=== PATIENT | female | born 1950 | race Caucasian/White ===

== ENCOUNTER 2020-06-06 17:26 | Emergency (ER) | payer MEDICARE, MEDICAID, SELFPAY ==
[2020-06-06] VITALS (7 sets, daily range): BP systolic 100–159; BP diastolic 49–72; PULSE 74–82; RESP 12–98; TEMP 36.4–36.9; O2SAT 95–100
--- NOTE | ~2020-06-06 | XR_ITS ---
XR shoulder LT min 2V DATE: 06/06/2020 19:28 INDICATION: Fall. Anterior shoulder pain. TECHNIQUE: 5 views COMPARISON: None FINDINGS: There is prominent diffuse osteopenia. There is osteoarthritis at the left glenohumeral joint and degenerative change at the left acromiocla vicular joint. No fracture, dislocation, periosteal reaction or bone destruction is detected. IMPRESSION: Diffuse osteopenia Degenerative changes No fracture or dislocation is detected Reviewed, dictated and finalized at location A.
--- NOTE | ~2020-06-06 | CT_ITS ---
EXAMINATION: CT brain wo con DATE: 06/06/2020 19:08 INDICATION: Fall. Head injury. Left supraorbital laceration. TECHNIQUE: Computed tomography (CT) of the head was performed without intravenous contrast. The mA wa s adjusted according to patient size. Iterative reconstruction technique was employed. Exam dose: 68 1.00 mGy-cm total exam DLP. COMPARISON: 03/28/2019 CT brain FINDINGS: There is a prominent area of encephalomalacia of the right temporal and parietal areas with calcification consistent with old infarct, within the right middle cerebral artery territory, stable since 01/27/2020. There is associated compensatory dilatation of the right lateral ventricle. Bilateral carotid siphon internal carotid artery calcifications and left vertebral artery calcificati on. There is nonspecific diminished attenuation of the cerebral white matter, likely due to chronic small vessel ischemic changes. No intracranial mass lesion or hemorrhage or recent cerebrovascular accident is evident. No midline s hift or mass effect effect. No subdural or epidural hematoma. No fracture or bone destruction of the cranial vault. The paranasal sinuses and mastoid air cells are well aerated. Left frontal sinus is not developed. Left periorbital and extracranial left frontal soft tissue hematoma. No coup or contrecoup intracrani al injury is identified. No fracture or bone destruction of the cranial vault. IMPRESSION: Left periorbital hematoma and left frontal cephalohematoma; no skull fracture or acute i ntracranial finding Chronic right middle cerebral artery territory cerebrovascular infarct Reviewed, dictated and finalized at [facility]. Reviewed, dictated and finalized at location A. IMPRESSION: Left periorbital hematoma and left frontal cephalohematoma; no sku ll fracture or acute intracranial finding Chronic right middle cerebral artery territory cerebrovascular infarct
--- NOTE | ~2020-06-06 | CT_ITS ---
EXAMINATION: CT facial & cervical spine wo DATE: 06/06/2020 19:08 INDICATION: Fall. Head injury. Left supraorbital laceration. TECHNIQUE: Computed tomography (CT) of the facial bones and maxillofacial region was performed withou t intravenous contrast. Automated exposure control and iterative reconstruction technique were employ ed. Exam dose: 494.96 mGy-cm total exam DLP. COMPARISON: 06/06/2020 CT brain FINDINGS: There is left frontal cephalohematoma and left periorbital soft tissue swelling. No skull fracture is identified. The frontozygomatic sutures, orbital rims and woodson, zygomatic arche s, nasal bones and maxillary sinus woodson are intact. The paranasal sinuses are patent and well aerate d without soft tissue thickening or blood. There is no subcutaneous emphysema identified. No mandibular fracture or temporomandibular joint dislocation. IMPRESSION: Left frontal cephalohematoma and left periorbital soft tissue swelling; no skull or faci al fracture is identified Reviewed, dictated and finalized at [facility]. Reviewed, dictated and finalized at location A. IMPRESSION: Left frontal cephalohematoma and left periorbital soft tissue swel ling; no skull or facial fracture is identified
--- NOTE | 2020-06-06 18:27 | ED.FALL ---
HPI - Fall General Chief Complaint: Fall Stated Complaint: FALL/ L EYE PAIN-LACERATION Time Seen by Provider: 06/06/20 17:54 Source: patient Mode of arrival: EMS Limitations: physical limitation History of Present Illness HPI Narrative: Patient is a 70-year-old female who presents by EMS. Per patient she was attempting to use restroom at correction and fell hitting her on an shoulder on concrete. Patient has a history of CVA and left-sided weakness. Patient complaining of left shoulder pain and left eye pain. Patient has been managing ecchymosis to left orbital area, approximately 1 cm laceration at eyebrow, bleeding controlled. She denies LOC, she denies all other complaints. Related Data Home Medications Medication Instructions Recorded Confirmed Breo Ellipta 1 inh INHALATION DAILY 03/03/19 03/03/19 Myrbetriq 50 mg PO DAILY 03/03/19 03/03/19 acetaminophen 500 mg PO QID PRN 03/03/19 03/03/19 albuterol sulfate [ProAir HFA] 2 puff INHALATION Q4H PRN 03/03/19 03/03/19 alprazolam 1 mg PO Q8H 03/03/19 03/03/19 atorvastatin 40 mg PO DAILY 03/03/19 03/03/19 bupropion HCl [Wellbutrin XL] 300 mg PO QAM 03/03/19 03/03/19 buspirone 15 mg PO Q8H 03/03/19 03/03/19 calcium carbonate [Tums] 200 mg PO QID PRN 03/03/19 03/03/19 docusate sodium 100 mg PO DAILY 03/03/19 03/03/19 duloxetine [Cymbalta] 60 mg PO BID 03/03/19 03/03/19 ferrous sulfate 325 mg PO DAILY 03/03/19 03/03/19 gabapentin 400 mg PO TID 03/03/19 03/03/19 guaifenesin [Mucinex] 600 mg PO BID 03/03/19 03/03/19 hydrocodone-acetaminophen [[place]] 1 tablet PO Q6H 03/03/19 03/03/19 ipratropium-albuterol 3 ml INHALATION Q8H 03/03/19 03/03/19 levetiracetam 750 mg PO BID 03/03/19 03/03/19 lisinopril 5 mg PO DAILY 03/03/19 03/03/19 melatonin 1 mg PO HS 03/03/19 03/03/19 melatonin 5 mg PO HS 03/03/19 03/03/19 nicotine (polacrilex) 2 mg BUCCAL Q1-2H PRN 03/03/19 03/03/19 nicotine [Nicoderm CQ] 1 patch TRANSDERMAL DAILY 03/03/19 03/03/19 omeprazole 40 mg PO DAILY 03/03/19 03/03/19 prednisone 10 mg PO DAILY 03/03/19 03/03/19 Allergies Allergy/AdvReac Type Severity Reaction Status Date / Time Sulfa (Sulfonamide Allergy Unknown Unknown Verified 06/06/20 17:36 Antibiotics) Review of Systems Review of Systems: Narrative: CONSTITUTIONAL: Denies fever, chills, or sweats. EYES: Reports pain and tenderness to the left orbital area and laceration ENT: Denies rhinorrhea, congestion, sore throat, or otalgia. CARDIOVASCULAR: Denies chest pain, palpitations, or edema. RESPIRATORY: Denies cough or dyspnea. GASTROINTESTINAL: Denies abdominal pain, nausea, vomiting, or diarrhea. GENITOURINARY: Denies dysuria or hematuria. SKIN: Denies rash or itching. MUSCULOSKELETAL: Left shoulder pain NEUROLOGIC: Denies headache, numbness, dizziness, or weakness. PSYCHIATRIC: Denies anxiety or depression. 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
--- NOTE | 2020-06-06 19:20 | PC.NURSE ---
Pt remains in radiology.
--- NOTE | 2020-06-06 19:29 | PC.NURSE ---
Pt returned from radiology.
[2020-06-06] MEDS: LIDOCAINE HCL 1% LOCAL INJ 20 ML VIAL (19:40)
--- NOTE | 2020-06-06 19:46 | PC.NURSE ---
DIGITAL PHOTOGRAPHER at bedside for laceration repair. Wound irrigation performed by DIGITAL PHOTOGRAPHER. Pt resting on cart in its lowest position. IV tylenol complete. Pt continues to complain of pain to left side of face, left shoulder and left wrist. Current pain rated 8/10 at this time; DIGITAL PHOTOGRAPHER notified with no new orders given at this time. Pt noted with 1cm laceration above left eyebrow that is not actively bleeding. Swelling and discoloration noted to left eye. Left shoulder and left wrist do not have obvious deformities noted. C-collar removed per DIGITAL PHOTOGRAPHER verbal order. Pt repositioned in bed for comfort. DIGITAL PHOTOGRAPHER remains at bedside and vitals are stable. Pt in no obvious distress. Call button and personal items within reach. Pt advised to press call button for assistance.
[2020-06-06] MEDS: HYDROcodone/acetaminophen (*CRX) 5-325 MG TABLET 1 TAB PO (20:27)
--- NOTE | 2020-06-06 21:10 | PC.NURSE ---
called tabitha to transfer patient to [facility]. ETA 0000
--- NOTE | 2020-06-06 21:49 | PC.NURSE ---
Pt on cart sleeping. Call button and personal items within reach. Vitals are stable and pt in no obvious distress.
--- NOTE | 2020-06-06 21:54 | PC.NURSE ---
EMS to arrive for pt at midnight. Pt aware and has no complaints or concerns voiced at this time.
--- NOTE | 2020-06-06 23:09 | PC.NURSE ---
Shaffer called and states will arrive for pt at 0000.
--- NOTE | 2020-06-07 01:06 | PC.NURSE ---
contacted [facility] to transfer patient home. eta [id number]
--- NOTE | 2020-06-07 01:07 | PC.NURSE ---
lu has arrived
[2020-06-07 01:11] VITALS: BP 107/64; PULSE 78; RESP 14; TEMP 37.1; O2SAT 100
--- NOTE | 2020-06-07 01:12 | PC.NURSE ---
EMS arrived to transport pt back to care home. Pt remains alert and oriented x4. Breathing noted to be even and unlabored and pt in no obvious distress.
--- NOTE | 2020-06-07 01:18 | ED.GENADULT ---
HPI - General Adult General Chief complaint: Fall Stated complaint: FALL/ L EYE PAIN-LACERATION Time Seen by Provider: 06/06/20 17:54 Source: patient Mode of arrival: EMS Limitations: physical limitation History of Present Illness HPI narrative: Patient repor Related Data Home Medications Medication Instructions Recorded Confirmed Breo Ellipta 1 inh INHALATION DAILY 03/03/19 03/03/19 Myrbetriq 50 mg PO DAILY 03/03/19 03/03/19 acetaminophen 500 mg PO QID PRN 03/03/19 03/03/19 albuterol sulfate [ProAir HFA] 2 puff INHALATION Q4H PRN 03/03/19 03/03/19 alprazolam 1 mg PO Q8H 03/03/19 03/03/19 atorvastatin 40 mg PO DAILY 03/03/19 03/03/19 bupropion HCl [Wellbutrin XL] 300 mg PO QAM 03/03/19 03/03/19 buspirone 15 mg PO Q8H 03/03/19 03/03/19 calcium carbonate [Tums] 200 mg PO QID PRN 03/03/19 03/03/19 docusate sodium 100 mg PO DAILY 03/03/19 03/03/19 duloxetine [Cymbalta] 60 mg PO BID 03/03/19 03/03/19 ferrous sulfate 325 mg PO DAILY 03/03/19 03/03/19 gabapentin 400 mg PO TID 03/03/19 03/03/19 guaifenesin [Mucinex] 600 mg PO BID 03/03/19 03/03/19 hydrocodone-acetaminophen [[place]] 1 tablet PO Q6H 03/03/19 03/03/19 ipratropium-albuterol 3 ml INHALATION Q8H 03/03/19 03/03/19 levetiracetam 750 mg PO BID 03/03/19 03/03/19 lisinopril 5 mg PO DAILY 03/03/19 03/03/19 melatonin 1 mg PO HS 03/03/19 03/03/19 melatonin 5 mg PO HS 03/03/19 03/03/19 nicotine (polacrilex) 2 mg BUCCAL Q1-2H PRN 03/03/19 03/03/19 nicotine [Nicoderm CQ] 1 patch TRANSDERMAL DAILY 03/03/19 03/03/19 omeprazole 40 mg PO DAILY 03/03/19 03/03/19 prednisone 10 mg PO DAILY 03/03/19 03/03/19 Allergies Allergy/AdvReac Type Severity Reaction Status Date / Time Sulfa (Sulfonamide Allergy Unknown Unknown Verified 06/06/20 17:36 Antibiotics) [facility] Past Medical History Medical History (Updated 06/06/20 @ 20:04 by NEEL Hermosillo) Abnormal posture Anemia Anxiety disorder due to known physiological condition Chronic pain Cognitive communication deficit COPD (chronic obstructive pulmonary disease) CVA (cerebral vascular accident) Dysarthria following cerebral infarction Essential (primary) hypertension GERD (gastroesophageal reflux disease) Hemiplegia and hemiparesis following cerebral infarction affecting left non-dominant side CVA 12/2016 Insomnia Major depressive disorder Multiple fractures of ribs Other abnormalities of gait and mobility Polyneuropathy Repeated falls Status post closed fracture of left femur s/p surgical repair Type 2 diabetes mellitus Surgical History Surgical History H/O colonoscopy H/O esophagogastroduodenoscopy History of partial hysterectomy History of tonsillectomy Family History Family History Father Diabetes mellitus PAD (peripheral artery disease) Hx of BKA Mother Cerebrovascular accident Sibling Diabetes mellitus Social History Social History Smoking packs per day: 1 Smoking cigarettes per day: 20.0 Years smoked: 50 Smoking pack-years: 50.00 Smoking status: Former smoker Tobacco type: cigarettes Alcohol intake: former Substance use: never Additional living arrangements comments: She lived in [place], [place] in the past, but now she is a resident at [facility] 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
[2020-06-07] MEDS: HYDROcodone/acetaminophen (*CRX) 5-325 MG TABLET 1 TAB PO (01:19)
[2020-06-07 02:12] VITALS: BP 107/64; PULSE 78; RESP 14; O2SAT 100
== END 2020-06-07 02:13 ==
PROVIDERS: Emergency Provider Nurse Practitioner
DX: S01.112A Laceration without foreign body of left eyelid and periocular area, initial encounter (principal); S05.12XA Contusion of eyeball and orbital tissues, left eye, initial encounter; I69.954 Hemiplegia and hemiparesis following unspecified cerebrovascular disease affecting left non-dominant side; I69.922 Dysarthria following unspecified cerebrovascular disease; J44.9 Chronic obstructive pulmonary disease, unspecified; I10 Essential (primary) hypertension; K21.9 Gastro-esophageal reflux disease without esophagitis; E11.42 Type 2 diabetes mellitus with diabetic polyneuropathy; F32.9 Major depressive disorder, single episode, unspecified; F41.9 Anxiety disorder, unspecified; R29.6 Repeated falls; Z86.2 Personal history of diseases of the blood and blood-forming organs and certain disorders involving the immune mechanism; Z87.891 Personal history of nicotine dependence; M85.812 Other specified disorders of bone density and structure, left shoulder; W18.11XA Fall from or off toilet without subsequent striking against object, initial encounter
CPT/HCPCS: 12011; 70450; 70486; 72125; 73030; 96365; 99284; A9270; J0131

== ENCOUNTER 2020-07-26 13:38 | Outpatient (CLI) | payer MEDICARE, MEDICAID, SELFPAY ==
--- NOTE | 2020-07-26 | ECHO_ITS ---
Patient Info Name: Constance Castro Age: 70 years : 1950 Gender: Female Ht: 62 in Wt: 128 lbs BSA: 1.60 m2 HR: 91 bpm BP: 121 / 74 mmHg Technical Quality: Poor Exam Date: 07/26/2020 2:15 PM Exam Location: [facility] Patient Status: Outpatient Admit Date: 07/26/2020 Staff Ordering Physician: Bettina Reyna NP Conveyor [employer]: ZAIDA OLMOS RDCS Attending Provider: Bettina Reyna NP Exam Type: CA echo doppler color flow Study Info Indications - CVA HYPOTENSION Complete two-dimentional, color flow and Doppler transthoracic echocardiogram is performed with agitated saline and with contrast to opacify the left ventricle and to improve the delineation of the left ventricle endocardial borders. Complete two-dimensional, color flow and Doppler transthoracic echocardiogram is performed. Reason for Poor Study: poor echocardiographic windows Summary 1. Complete two-dimensional, color flow and Doppler transthoracic echocardiogram is performed. 2. Technically suboptimal study due to poor sonographic images. 3. Left ventricular chamber dimension is normal. 4. Left ventricular systolic function is normal, estimated at 60-65%. 5. The left ventricular diastolic function is grade I diastolic dysfunction. 6. E/e' 7 is not elevated. Left Ventricle E/e' 7 is not elevated. Technically suboptimal study due to poor sonographic images. Left ventricular chamber dimension is normal. Left ventricular systolic function is normal, estimated at 60-65%. The left ventricular diastolic function is grade I diastolic dysfunction. Right Ventricle Right ventricular systolic function is normal with normal TAPSE 1.7 cm. Right ventricular chamber dimension is normal. Left Atria Left atrial chamber dimension is normal. Right Atria Right atrial chamber dimension is normal. Aortic Valve The aortic valve is trileaflet. There is no aortic valve stenosis. There is no aortic valve regurgitation. Pulmonic Valve There is no pulmonic regurgitation. Mitral Valve There is no mitral valve stenosis. There is no mitral valve regurgitation. Tricuspid Valve There is no tricuspid valve regurgitation. Pericardium/Pleural There is no pericardial effusion. Inferior Vena Cava Normal inferior vena cava with >50% collapse upon inspiration consistent with normal right atrial pressure, 5 mmHg. Aorta The aortic root size at the sinus of Valsalva is normal. Left Ventricular Outflow Tract Name Value Normal LVOT 2D LVOT Diameter 1.7 cm LVOT Doppler LVOT Peak Velocity 76 cm/s LVOT Peak Gradient 2 mmHg LVOT Mean Gradient 1 mmHg LVOT VTI 14 cm LVOT VTI/AV VTI Ratio 0.8 LVOT Stroke Volume 32 ml LVOT CO 2.8 l/min LVOT CI 1.7 l/min/m2 Pulmonic Valve Name Value Normal ---
== END 2020-07-26 13:39 | disposition home or self-care (01) ==
PROVIDERS: PCP Internal Medicine
DX: I95.9 Hypotension, unspecified (principal)
CPT/HCPCS: 93306

== ENCOUNTER 2020-09-17 12:14 | Emergency (ER) | payer MEDICARE, MEDICAID, SELFPAY ==
--- NOTE | ~2020-09-17 | CT_ITS ---
EXAMINATION: CT thoracic spine wo con DATE: 09/17/2020 13:02 INDICATION: Thoracic spine injury. TECHNIQUE: Computed tomography (CT) of the thoracic spine was performed without intravenous contrast. Automated exposure control and iterative reconstruction technique were employed. The dose-length pro duct was 1253.50 mGy-cm. COMPARISON: Chest CT 03/03/2019 FINDINGS: The lungs demonstrate mild atelectasis. There are gallstones in the gallbladder, which is n ormal in size. There is a 2.4 cm mass in left adrenal gland without change, likely an adenoma. The he art size is normal. There is a small pericardial effusion. There is kyphosis of thoracic spine. There is chronic anterior wedging of multiple vertebral bodies. There is mildly decreased disc height at m ultiple levels. There is multilevel mild facet joint osteoarthritis. There are bridging endplate oste ophytes at multiple levels in the spine, consistent with diffuse idiopathic skeletal hyperostosis (DI SH). There is mild neural foraminal stenosis at many levels bilaterally. No central canal stenosis. IMPRESSION: 1. No acute fracture. 2. Mild thoracic spondylosis. 3. DISH. 4. Small pericardial effusion. Reviewed, dictated and finalized at location A.
--- NOTE | ~2020-09-17 | CT_ITS ---
EXAMINATION: CT cervical spine wo con DATE: 09/17/2020 13:02 INDICATION: Neck injury. TECHNIQUE: Computed tomography (CT) of the cervical spine was performed without intravenous contrast. Automated exposure control and iterative reconstruction technique were employed. The dose-length pro duct was 472.81 mGy-cm. COMPARISON: CT cervical spine 06/06/2020 FINDINGS: There is 6 degrees dextrocurvature of cervical spine. Vertebral body heights are normal. A stable sclerotic lesion in T4 vertebral body is likely benign. There is mildly decreased disc height at C3-C4.. The following disc levels are specifically discussed: C2-C3: There is no uncovertebral joint osteoarthritis. There is moderate right and severe left facet joint osteoarthritis. There is no neural foraminal stenosis. There is no central canal stenosis. C3-C4: There is moderate bilateral uncovertebral joint osteoarthritis. There is severe bilateral face t joint osteoarthritis. There is mild bilateral neural foraminal stenosis. There is mild central brandon l stenosis. C4-C5: There is mild right uncovertebral joint osteoarthritis. There is severe bilateral facet joint osteoarthritis. There is mild bilateral neural foraminal stenosis. There is no central canal stenosis . C5-C6: There is moderate bilateral uncovertebral joint osteoarthritis. There is severe left facet mike nt osteoarthritis. There is mild left neural foraminal stenosis. There is mild central canal stenosis . C6-C7: There is no uncovertebral joint osteoarthritis. There is severe left facet joint osteoarthriti s. There is mild left neural foraminal stenosis. There is no central canal stenosis. C7-T1: There is no uncovertebral joint osteoarthritis. There is severe bilateral facet joint osteoart hritis. There is no neural foraminal stenosis. There is no central canal stenosis. IMPRESSION: 1. No fracture. 2. Moderate cervical spondylosis. Reviewed, dictated and finalized at location A.
--- NOTE | ~2020-09-17 | CT_ITS ---
EXAMINATION: CT brain wo con INDICATION: Head injury COMPARISON: 06/07/2019 TECHNIQUE: Standard unenhanced head CT. The dose-length product (DLP) was 605.33 mGy-cm. The mA was a djusted according to patient size. Iterative reconstruction technique was employed. FINDINGS: There is no acute intraparenchymal hemorrhage. No evidence of mass lesion. No evidence of a cute infarction. There is an old right middle cerebral artery distribution stroke. There is mild ex v acuo enlargement of the right lateral ventricle. There is mild periventricular and subcortical hypode nsity probably related to small vessel ischemic disease. There is mild prominence of the sulci and ve ntricles related to cerebral atrophy. Intracranial calcified cerebral atherosclerosis is noted. There are no extra-axial collections. There is no mass effect or midline shift. The orbits and soft tissue s are unremarkable. The visualized sinuses and mastoid air cells are well aerated. IMPRESSION: 1. Old right middle cerebral artery distribution stroke without acute intracranial abnormality. 2. Age related findings. Reviewed, dictated and finalized at location B. IMPRESSION: 1. Old right middle cerebral artery distribution stroke without acute intracran ial abnormality. 2. Age related findings.
--- NOTE | ~2020-09-17 | XR_ITS ---
EXAMINATION: XR chest 2V DATE: 09/17/2020 12:46 INDICATION: Chest pain and shortness of breath TECHNIQUE: AP and lateral views of the chest are obtained. COMPARISON: 03/03/2019 FINDINGS: There is mild subsegmental atelectasis of the lung bases. There is no pleural effusion or p neumothorax. The cardiomediastinal silhouette is normal. There is moderate thoracic spondylosis. IMPRESSION: 1. No acute cardiopulmonary abnormality. Reviewed, dictated and finalized at location B.
--- NOTE | 2020-09-17 12:14 | ECG_ITS ---
Measurements Intervals [place] Rate: 82 P: 58 NM: 169 QRS: 18 QRSD: 87 T: 74 QT: 377 QTc: 442 Interpretive Statements SINUS RHYTHM NONSPECIFIC T-WAVE ABNORMALITY- HIGH LATERAL LEADS BASELINE WANDER- I, II BORDERLINE ECG Electronically Signed On 09-17-2020 13:11:57 CDT by Yordan Arndt D.O.
[2020-09-17 12:15] VITALS: BP 150/79; PULSE 86; RESP 16; TEMP 36.7; O2SAT 100
[2020-09-17 13:35] LABS: Basophils Percent Auto 0.4 % (0.2-1.2); Eosinophils Absolute Auto 0.2 K/mm3 (0-0.3); Eosinophils Percent Auto 2.1 % (0-4.4); Hematocrit 39.5 % (37.0-47.0); Hemoglobin 12.1 g/dL (12.0-15.0); Immature Granulocyte Absolute 0.03 K/mm3 (0.00-0.031); Immature Granulocyte Percent A 0.3 % (0-0.5); Lymphocytes Absolute Auto 1.44 K/mm3 (0.9-3.2); Lymphocytes Percent Auto 15.1 % (18.3-44.2); Mean Corpuscular HGB Conc 30.6 g/dl (32-36); Mean Corpuscular Hemoglobin 30.9 pg (26-34); Mean Corpuscular Volume 100.8 fl (80-100); Mean Platelet Volume 9.3 fl (7.4-10.4); Monocytes Percent Auto 10.9 % (2.6-8.5); Neutrophils Absolute Auto 6.8 K/mm3 (1.3-6.7); Neutrophils Percent Auto 71.2 % (45.5-73.1); Platelet Count Result 253 k/mm3 (150-375); Red Blood Count 3.92 M/mm3 (4.2-5.4); Red Cell Distribution Width 12.8 % (11.5-14.5); White Blood Count 9.5 K/mm3 (4.5-10.0)
[2020-09-17 13:45] LABS: Anion Gap 8 mmol/L (8-16); Blood Urea Nitrogen 28 mg/dL (7-17); Calcium 9.2 mg/dL (8.4-10.2); Carbon Dioxide 33 mmol/L (22-30); Chloride 102 mmol/L (98-107); Estimated CRCL calculation 47 ml/min; Estimated Glomerular Filt Rate 55; Glucose 83 mg/dL (65-105); Sodium 143 mmol/L (137-145)
[2020-09-17 13:54] LABS: INR 0.9
[2020-09-17 13:56] LABS: Troponin I < 0.012 ng/mL (0.000-0.034)
--- NOTE | 2020-09-17 13:58 | ED.CHESTPAIN ---
HPI - Chest Pain General Chief Complaint: Chest Pain Stated Complaint: CP Time Seen by Provider: 09/17/20 12:19 Source: patient, RN notes reviewed and old records reviewed Mode of arrival: EMS Limitations: no limitations History of Present Illness HPI narrative: Patient is a 70-year-old female who complains of pain from sitting in her wheelchair and falling 2 days ago patient was reportedly found to have fallen out of bed 2 days ago has been complaining of upper back pain and left shoulder pain since. Patient also notes that she has had pain with breathing and movement for the last week. Patient denies head injury syncope loss of consciousness. Patient has had recent negative radiographs. Patient on the arrival to emergency department does not appear distressed or uncomfortable. Related Data Home Medications Medication Instructions Recorded Confirmed Breo Ellipta 1 inh INHALATION DAILY 03/03/19 03/03/19 Myrbetriq 50 mg PO DAILY 03/03/19 03/03/19 acetaminophen 500 mg PO QID PRN 03/03/19 03/03/19 albuterol sulfate [ProAir HFA] 2 puff INHALATION Q4H PRN 03/03/19 03/03/19 alprazolam 1 mg PO Q8H 03/03/19 03/03/19 atorvastatin 40 mg PO DAILY 03/03/19 03/03/19 bupropion HCl [Wellbutrin XL] 300 mg PO QAM 03/03/19 03/03/19 buspirone 15 mg PO Q8H 03/03/19 03/03/19 calcium carbonate [Tums] 200 mg PO QID PRN 03/03/19 03/03/19 docusate sodium 100 mg PO DAILY 03/03/19 03/03/19 duloxetine [Cymbalta] 60 mg PO BID 03/03/19 03/03/19 ferrous sulfate 325 mg PO DAILY 03/03/19 03/03/19 gabapentin 400 mg PO TID 03/03/19 03/03/19 guaifenesin [Mucinex] 600 mg PO BID 03/03/19 03/03/19 hydrocodone-acetaminophen [[place]] 1 tablet PO Q6H 03/03/19 03/03/19 ipratropium-albuterol 3 ml INHALATION Q8H 03/03/19 03/03/19 levetiracetam 750 mg PO BID 03/03/19 03/03/19 lisinopril 5 mg PO DAILY 03/03/19 03/03/19 melatonin 1 mg PO HS 03/03/19 03/03/19 melatonin 5 mg PO HS 03/03/19 03/03/19 nicotine (polacrilex) 2 mg BUCCAL Q1-2H PRN 03/03/19 03/03/19 nicotine [Nicoderm CQ] 1 patch TRANSDERMAL DAILY 03/03/19 03/03/19 omeprazole 40 mg PO DAILY 03/03/19 03/03/19 prednisone 10 mg PO DAILY 03/03/19 03/03/19 Allergies Allergy/AdvReac Type Severity Reaction Status Date / Time Sulfa (Sulfonamide Allergy Unknown Unknown Verified 06/06/20 17:36 Antibiotics) Review of Systems Review of Systems: All systems reviewed & are unremarkable except as noted in HPI and below PMFSH Past Medical History Medical History (Updated 09/17/20 @ 16:14 by Reyes Faith PA-C) Abnormal posture Anemia Anxiety disorder due to known physiological condition Chronic pain Cognitive communication deficit COPD (chronic obstructive pulmonary disease) CVA (cerebral vascular accident) Dysarthria following cerebral infarction Essential (primary) hypertension GERD (gastroesophageal reflux disease) Hemiplegia and hemiparesis following cerebral infarction affecting left non-dominant side CVA 12/2016 Insomnia Major depressive disorder Multiple fractures of ribs Other abnormalities of gait and mobility Polyneuropathy Repeated falls Status post closed fracture of left femur s/p surgical repair Type 2 diabetes mellitus Surgical History Surgical History H/O colonoscopy H/O esophagogastroduodenoscopy History of partial hysterectomy History of tonsillectomy Family History Family History Father Diabetes mellitus PAD (peripheral artery disease) Hx of BKA Mother Cerebrovascular accident Sibling Diabetes mellitus Social History Social History Smoking packs per day: 1 Smoking cigarettes per day: 20.0 Years smoked: 50 Smoking pack-years: 50.00 Smoking status: Former smoker Tobacco type: cigarettes Alcohol intake: former Substance use: never Additional living arrangements comments: She [facility]
[2020-09-17] MEDS: SODIUM CHLORIDE 0.9% IV 1,000 ML 999 ML IV CONT (13:59)
[2020-09-17 14:01] VITALS: BP 113/78; PULSE 78; O2SAT 99
[2020-09-17 14:50] LABS: Add Urine Microscopic? YES; Appearance Urine Cloudy (Clear); Bacteria Urine Trace /hpf; Bilirubin Urine Negative (Negative); Blood Urine Negative (Negative); Color Urine Amber (Yellow); Glucose Urine UA Negative (Negative); Ketones Urine Negative (Negative); Leukocyte Esterase Ur 3+ LEU/UL (Negative); Nitrate Urine Negative (Negative); Protein Urine 1+ mg/dL (Negative); RBC Urine 21-50 /hpf (0-2); Specific Grav Ur 1.016 (1.001-1.035); Urobilinogen Urine Negative mg/dL (<2.0); WBC Urine >75 /hpf
[2020-09-17 15:37] LABS: Troponin I < 0.012 ng/mL (0.000-0.034)
[2020-09-17] MEDS: HYDROcodone/acetaminophen (*CRX) 5-325 MG TABLET 1 TAB PO (17:34)
[2020-09-17 19:07] VITALS: BP 120/56; PULSE 78; RESP 18
== END 2020-09-17 19:11 ==
PROVIDERS: Emergency Medicine Emergency Medical Services; Emergency Provider Emergency Medicine
DX: S29.9XXA Unspecified injury of thorax, initial encounter (principal); N39.0 Urinary tract infection, site not specified; E86.0 Dehydration; J44.9 Chronic obstructive pulmonary disease, unspecified; I69.922 Dysarthria following unspecified cerebrovascular disease; I69.954 Hemiplegia and hemiparesis following unspecified cerebrovascular disease affecting left non-dominant side; I10 Essential (primary) hypertension; K21.9 Gastro-esophageal reflux disease without esophagitis; E11.42 Type 2 diabetes mellitus with diabetic polyneuropathy; D64.9 Anemia, unspecified; F41.9 Anxiety disorder, unspecified; F32.9 Major depressive disorder, single episode, unspecified; Z87.891 Personal history of nicotine dependence; M48.10 Ankylosing hyperostosis [Forestier], site unspecified; M47.814 Spondylosis without myelopathy or radiculopathy, thoracic region; R94.31 Abnormal electrocardiogram [ECG] [EKG]; W06.XXXA Fall from bed, initial encounter
CPT/HCPCS: 36415; 51701; 70450; 71046; 72125; 72128; 80048; 81001; 84484; 85025; 85610; 85730; 87077; 87086; 87088; 87186; 93005; 96361; 96365; 99284; A9270; J0696; J7030

== ENCOUNTER 2021-02-17 08:47 | Inpatient (IN) | payer MEDICARE, MEDICAID, SELFPAY ==
[2021-02-17] VITALS (17 sets, daily range): BP systolic 113–171; BP diastolic 60–91; PULSE 64–103; RESP 16–26; TEMP 36–36.9; O2SAT 91–99; BMI 31.1
--- NOTE | ~2021-02-17 | XR_ITS ---
XR chest 2V 02/17/2021 09:26 Indication: Chest pain and shortness of breath Procedure: 2 view chest Comparison: 09/17/2020 Findings: Cardiomegaly. Stable bibasilar infiltrates, likely atelectasis/scarring. There is left lowe r lobe airspace disease which is new. Cannot exclude pneumonia Impression: 1: Left lower lobe airspace disease which may represent pneumonia and/or atelectasis. 2: Chronic bibasilar linear infiltrates, most likely atelectasis/scarring. Reviewed, dictated and finalized at location B. 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 2: Chronic bibasilar linear infiltrates, most likely atelectasis/scarring.
--- NOTE | 2021-02-17 08:54 | ECG_ITS ---
Measurements Intervals [place] Rate: 102 P: 52 [place]: 144 QRS: 30 QRSD: 87 T: 56 QT: 348 QTc: 455 Interpretive Statements SINUS TACHYCARDIA BASELINE WANDER- I, II, AVR, AVL, AVF BORDERLINE ECG Electronically Signed On 02-17-2021 9:09:31 ADMINISTRATIVE SUPERVISOR by Yordan Arndt D.O.
[2021-02-17] MEDS: ASPIRIN 81 MG CHEWABLE TABLET 324 MG PO (09:27)
[2021-02-17 10:09] LABS: Basophils Absolute Auto 0.1 K/mm3 (0.0-0.1); Basophils Percent Auto 0.5 % (0.2-1.2); Eosinophils Absolute Auto 0.3 K/mm3 (0-0.3); Eosinophils Percent Auto 1.8 % (0-4.4); Hematocrit 39.5 % (37.0-47.0); Hemoglobin 12.3 g/dL (12.0-15.0); Immature Granulocyte Absolute 0.07 K/mm3 (0.00-0.031); Immature Granulocyte Percent A 0.5 % (0-0.5); Lymphocytes Absolute Auto 1.73 K/mm3 (0.9-3.2); Lymphocytes Percent Auto 11.7 % (18.3-44.2); Mean Corpuscular HGB Conc 31.1 g/dl (32-36); Mean Corpuscular Hemoglobin 32.7 pg (26-34); Mean Corpuscular Volume 105.1 fl (80-100); Mean Platelet Volume 9.1 fl (7.4-10.4); Monocytes Absolute Auto 1.5 K/mm3 (0.1-0.6); Monocytes Percent Auto 9.8 % (2.6-8.5); Neutrophils Absolute Auto 11.3 K/mm3 (1.3-6.7); Neutrophils Percent Auto 75.7 % (45.5-73.1); Platelet Count Result 218 k/mm3 (150-375); Red Blood Count 3.76 M/mm3 (4.2-5.4); Red Cell Distribution Width 13.5 % (11.5-14.5); White Blood Count 14.8 K/mm3 (4.5-10.0)
[2021-02-17 10:22] LABS: Prothrombin Time 12.6 Seconds (11.1-14.7)
[2021-02-17 10:23] LABS: Partial Thromboplastin Time 24.1 SECONDS (22.3-36.8)
[2021-02-17 10:24] LABS: Alanine Aminotransferase 23 U/L (4-35); Albumin Level 4.3 g/dL (3.5-5.1); Alkaline Phosphatase 138 U/L (38-126); Anion Gap 8 mmol/L (8-16); Aspartate Amino Transferase 22 U/L (14-36); Bilirubin,Total 0.4 mg/dL (0.2-1.3); Blood Urea Nitrogen 24 mg/dL (7-17); Carbon Dioxide 32 mmol/L (22-30); Chloride 95 mmol/L (98-107); Estimated CRCL calculation 56 ml/min; Estimated Glomerular Filt Rate > 60; Glucose 124 mg/dL (65-110); Lipase 48 U/L (23-300); Potassium 4.4 mmol/L (3.4-5.0); Sodium 135 mmol/L (137-145)
--- NOTE | 2021-02-17 10:30 | ED.CHESTPAIN ---
HPI - Chest Pain General Chief Complaint: Chest Pain Stated Complaint: CP Time Seen by Provider: 02/17/21 10:29 Source: patient, EMS and RN notes reviewed Mode of arrival: EMS History of Present Illness HPI narrative: Patient presents with chest pain bilaterally and shortness of breath mainly with inspiration. Patient normally on 2 L by nasal cannula, patient also complaining of productive cough. Patient is fully vaccinated for COVID-19, recent negative Covid test. Patient denies any fever or chills. Patient is DNR. Above symptoms started over the last 2 days and gradually getting worse. Related Data Home Medications Medication Instructions Recorded Confirmed alprazolam 02/17/21 atorvastatin 02/17/21 buspirone mg 02/17/21 donepezil mg 02/17/21 duloxetine mg PO 02/17/21 fluticasone furoate-vilanterol INHALATION 02/17/21 [Breo Ellipta] gabapentin 02/17/21 hydrocodone-acetaminophen 02/17/21 ibuprofen 02/17/21 levetiracetam PO 02/17/21 mirabegron [Myrbetriq] mg PO 02/17/21 omeprazole 02/17/21 quetiapine 02/17/21 quetiapine 02/17/21 Allergies Allergy/AdvReac Type Severity Reaction Status Date / Time Sulfa (Sulfonamide Allergy Unknown Unknown Verified 02/17/21 09:04 Antibiotics) Review of Systems Review of Systems: CONSTITUTIONAL: Denies fever, chills, or sweats. EYES: Denies visual changes, redness, or discharge. ENT: Denies rhinorrhea, congestion, sore throat, or otalgia. CARDIOVASCULAR: Denies chest pain, palpitations, or edema. RESPIRATORY: Denies cough or dyspnea. GASTROINTESTINAL: Denies abdominal pain, nausea, vomiting, or diarrhea. GENITOURINARY: Denies dysuria or hematuria. SKIN: Denies rash or itching. MUSCULOSKELETAL: Denies back pain, joint pain, or myalgia. NEUROLOGIC: Denies headache, numbness, or weakness. PSYCHIATRIC: Denies anxiety or depression. [facility] Past Medical History Medical History (Updated 02/17/21 @ 11:36 by Humza Russ MD) Abnormal posture Anemia Anxiety disorder due to known physiological condition Chronic pain Cognitive communication deficit COPD (chronic obstructive pulmonary disease) CVA (cerebral vascular accident) Dysarthria following cerebral infarction Essential (primary) hypertension GERD (gastroesophageal reflux disease) Hemiplegia and hemiparesis following cerebral infarction affecting left non-dominant side CVA 12/2016 Insomnia Major depressive disorder Multiple fractures of ribs Other abnormalities of gait and mobility Polyneuropathy Repeated falls Status post closed fracture of left femur s/p surgical repair Type 2 diabetes mellitus Surgical History Surgical History H/O colonoscopy H/O esophagogastroduodenoscopy History of partial hysterectomy History of tonsillectomy Family History Family History Father Diabetes mellitus PAD (peripheral artery disease) Hx of BKA Mother Cerebrovascular accident Sibling Diabetes mellitus Social History Social History Smoking packs per day: 1 Smoking cigarettes per day: 20.0 Years smoked: 50 Smoking pack-years: 50.00 Smoking status: Former smoker Tobacco type: cigarettes Alcohol intake: former Alcohol use details: She has a history of alcohol abuse, quit 16 years ago. 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
[2021-02-17 10:36] LABS: Troponin I < 0.012 ng/mL (0.000-0.034)
[2021-02-17 11:24] LABS: Alveolar/Arterial O2 Gradient 108.1 mmHg; Base Excess ABG 5.4 mEq/l (+/-2.0); Fractional Inspired Oxygen 36 %; Oxygen Content ABG 16.6 %vol (16.0-22.0); Oxygen Saturation ABG 95.8 % (95.0-100.0); Oxyhemoglobin 94.9 % THb (90.0-100.0); PCO2 ABG 56.3 mmHg (35.0-45.0); PO2 ABG 83.3 mmHg (80.0-100.0); PO2 FiO2 Ratio Arterial Blood 2.31 %; Total Hemoglobin 12.4 g/dL (12.0-18.0); pH ABG 7.373 (7.350-7.450)
[2021-02-17 11:25] LABS: Device NASAL CANNULA; Modified Allen's Test Pass; Site Drawn RIGHT RADIAL
[2021-02-17] MEDS: PIPERACILLIN/TAZOBACTAM SOD 4.5 GM in SODIUM CHLORIDE 0.9% IV 100 ML 200 ML IVPB ×2 (11:44→18:32)
[2021-02-17] MEDS: ALBUTEROL SULFATE NEB 2.5 MG/0.5 ML INH 5 MG INHALATION ×2 (11:47→20:01)
[2021-02-17] MEDS: IPRATROPIUM BR 0.02% INH SOLN 0.5 MG/2.5 ML VIAL INHALATION ×2 (11:47→20:01)
[2021-02-17 12:38] LABS: Troponin I < 0.012 ng/mL (0.000-0.034)
[2021-02-17] MEDS: ACETAMINOPHEN 325 MG TABLET 650 MG PO (14:07)
--- NOTE | 2021-02-17 14:15 | PM.IMHP ---
H&P: HPI History of Present Illness Date/Time: 02/17/21 14:15 Chief Complaint: Chest pain shortness of breath. Narrative: This is a 70-year-old female with history of stroke COPD, chronic respiratory failure on 2 L nasal cannula, hypertension, seizures, and diabetes who presented to the emergency department earlier today via EMS for evaluation of chest pain and shortness of breath. She reports a gradual onset of increasing shortness of breath from baseline which began sometime yesterday evening and fact she had to turn her oxygen up to 4 L nasal cannula when she is typically at 3 L a majority of the time. She has also had a cough productive of yellow sputum and reports mild tightness in her chest with deep inspiration. Chest x-ray today showed left lower lobe airspace disease which may represent pneumonia and/or atelectasis and she is being admitted in this setting. She is fully vaccinated against COVID and she denies sick contacts. She has not had fever, chills, or sweats. She denies dysphagia and concerns for aspiration. She has not had exertional chest pain and she also denies orthopnea, PND, and lower extremity edema. No sinus congestion, rhinorrhea, otalgia, or odynophagia. Review of Systems Review of Systems: Twelve systems were reviewed. She denies headache. No hemoptysis. No nausea, vomiting, or diarrhea. Except as documented, all other systems were reviewed and are negative. [facility] Past Medical History Medical History (Updated 02/17/21 @ 20:39 by Desire Hanley PA-C) Anemia Anxiety Cerebrovascular accident (12/2016) Resultant left hemiplegia. Chronic obstructive pulmonary disease Chronic pain Cognitive communication deficit Essential hypertension Gastroesophageal reflux disease Insomnia Major depressive disorder Polyneuropathy Seizures Type 2 diabetes mellitus Surgical History Surgical History (Updated 02/17/21 @ 13:47 by Desire Hanley PA-C) History of colonoscopy History of esophagogastroduodenoscopy History of open reduction and internal fixation (ORIF) procedure ORIF left hip fracture. History of partial hysterectomy History of tonsillectomy Family History Family History Father Diabetes mellitus PAD (peripheral artery disease) Hx of BKA Mother Cerebrovascular accident Sibling Diabetes mellitus Social History Social History (Updated 11/29/21 @ 20:40 by Desire Hanley PA-C) Social History: Surrogate decision maker: KORI Carreon. Code status: Do not resuscitate. Smoking packs per day: 1 Smoking cigarettes per day: 20.0 Years smoked: 50 Smoking pack-years: 50.00 Smoking status: Former smoker Tobacco type: cigarettes Second hand tobacco smoke exposure: No Alcohol intake: never Alcohol use details: History of alcohol abuse, quit 16 years ago. Substance use: never Additional living arrangements comments: Resident at [facility]. 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 Meds Home Medications and Allergies Home Medications Medication Instructions Recorded Confirmed Type alprazolam 02/17/21 History atorvastatin 02/17/21 History buspirone mg 02/17/21 History donepezil mg 02/17/21 History duloxetine mg PO 02/17/21 History fluticasone furoate-vilanterol INHALATION 02/17/21 History [Breo Ellipta] gabapentin 02/17/21 History hydrocodone-acetaminophen 02/17/21 History ibuprofen 02/17/21 History levetiracetam PO 02/17/21 History mirabegron [Myrbetriq] mg PO 02/17/21 History omeprazole 02/17/21 History quetiapine 02/17/21 History quetiapine 02/17/21 History Allergies Allergy/AdvReac Type Severity Reaction Status Date / Time Sulfa (Sulfonamide Allergy Unknown Unknown Verified 02/17/21 09:04 Antibiotics) Vital Signs Vital Signs - 24 h
[2021-02-17 15:50] LABS: Troponin I < 0.012 ng/mL (0.000-0.034)
--- NOTE | 2021-02-17 16:40 | ADMGEN ---
This patient, Constance Castro, was admitted to 3 [facility] Surg Room 301-01 at 1450. Patient/family oriented to hospital policies and general routines including ID bracelet, bed and alarms, visiting hours, pain management, procedures, bathroom and other care routines, personal items, smoking policy, room service/diet, and visiting hours. Information on how to activate the Rapid Response Team has been discussed. Patient/Family are encouraged to report perceived risks to care and to ask questions if they do not understand what they are told or what they should do.
[2021-02-17 17:17] LABS: Glucose Point of Care 97 mg/dl (65-105)
[2021-02-17 20:04] LABS: SARS-CoV-2 RNA PCR Negative
[2021-02-17] MEDS: ALPRAZolam (*CRX) 0.25 MG TABLET PO (22:42)
[2021-02-18] VITALS (14 sets, daily range): BP systolic 121–153; BP diastolic 52–77; PULSE 91–106; RESP 17–18; TEMP 36–36.7; O2SAT 92–99
[2021-02-18] MEDS: IPRATROPIUM BR 0.02% INH SOLN 0.5 MG/2.5 ML VIAL INHALATION ×4 (01:33→20:31)
[2021-02-18] MEDS: ALBUTEROL SULFATE NEB 2.5 MG/0.5 ML INH 5 MG INHALATION ×4 (01:33→20:31)
[2021-02-18] MEDS: methylPREDNISolone SOD SUCC 125 MG VIAL 80 MG IV PUSH (04:04)
--- NOTE | 2021-02-18 04:12 | PC.NURSE ---
This patient, Constance Castro, was received from [[id number] ] on 02/18/21 at 0412. Patient/family oriented to unit policies and routines
[2021-02-18 06:18] LABS: Basophils Percent Auto 0.3 % (0.2-1.2); Eosinophils Absolute Auto 0.1 K/mm3 (0-0.3); Eosinophils Percent Auto 0.7 % (0-4.4); Hematocrit 37.9 % (37.0-47.0); Hemoglobin 12.4 g/dL (12.0-15.0); Immature Granulocyte Absolute 0.05 K/mm3 (0.00-0.031); Immature Granulocyte Percent A 0.4 % (0-0.5); Lymphocytes Absolute Auto 1.13 K/mm3 (0.9-3.2); Lymphocytes Percent Auto 9.8 % (18.3-44.2); Mean Corpuscular HGB Conc 32.7 g/dl (32-36); Mean Corpuscular Hemoglobin 32.5 pg (26-34); Mean Corpuscular Volume 99.2 fl (80-100); Mean Platelet Volume 9.1 fl (7.4-10.4); Monocytes Absolute Auto 0.4 K/mm3 (0.1-0.6); Monocytes Percent Auto 3.6 % (2.6-8.5); Neutrophils Absolute Auto 9.8 K/mm3 (1.3-6.7); Neutrophils Percent Auto 85.2 % (45.5-73.1); Platelet Count Result 251 k/mm3 (150-375); Red Blood Count 3.82 M/mm3 (4.2-5.4); Red Cell Distribution Width 13.2 % (11.5-14.5); White Blood Count 11.6 K/mm3 (4.5-10.0)
[2021-02-18 06:38] LABS: Alanine Aminotransferase 22 U/L (4-35); Albumin Level 4.5 g/dL (3.5-5.1); Alkaline Phosphatase 149 U/L (38-126); Anion Gap 9 mmol/L (8-16); Aspartate Amino Transferase 26 U/L (14-36); Bilirubin,Total 0.6 mg/dL (0.2-1.3); Blood Urea Nitrogen 17 mg/dL (7-17); Calcium 9.5 mg/dL (8.4-10.2); Carbon Dioxide 31 mmol/L (22-30); Chloride 95 mmol/L (98-107); Estimated CRCL calculation 56 ml/min; Estimated Glomerular Filt Rate > 60; Glucose 176 mg/dL (65-110); Lactate Dehydrogenase 417 U/L (313-618); Sodium 135 mmol/L (137-145)
[2021-02-18 08:40] LABS: Folic Acid > 20.0 ng/mL (2.76->20)
[2021-02-18] MEDS: ENOXAPARIN 40 MG/0.4 ML SYRINGE SUB-Q (08:55)
[2021-02-18] MEDS: ALPRAZolam (*CRX) 0.25 MG TABLET PO ×2 (08:56→17:30)
[2021-02-18] MEDS: ASPIRIN 81 MG CHEWABLE TABLET PO (08:56)
[2021-02-18] MEDS: FLUTICASONE/SALMETEROL 115-21 MCG INHALER 1 PUFF 2 PUFF INHALATION ×2 (10:36→20:31)
--- NOTE | 2021-02-18 10:36 | PCRCNOTE ---
Window of time for administration has passed. See next scheduled administration.
[2021-02-18] MEDS: levETIRAcetam 250 MG TABLET 750 MG PO ×2 (11:20→20:24)
[2021-02-18] MEDS: ATORVASTATIN 40 MG TABLET PO (11:20)
[2021-02-18] MEDS: busPIRone HCL 10 MG TABLET 30 MG PO ×2 (11:20→17:30)
[2021-02-18] MEDS: MIRABEGRON 50 MG ER TABLET PO (11:20)
[2021-02-18] MEDS: GABAPENTIN 300 MG CAPSULE 600 MG PO ×3 (11:21→17:30)
[2021-02-18] MEDS: PANTOPRAZOLE 40 MG TABLET PO ×2 (11:21→17:30)
[2021-02-18] MEDS: HYDROcodone/acetaminophen (*CRX) 5-325 MG TABLET 1 TAB PO ×3 (11:21→17:30)
[2021-02-18] MEDS: DULoxetine HCL 60 MG CAPSULE.DR PO (11:21)
[2021-02-18] MEDS: QUEtiapine FUMARATE 100 MG TABLET PO ×2 (11:21→20:24)
--- NOTE | 2021-02-18 15:11 | PM.IMPN ---
Progress Note: A&P Assessment and Plan (1) Pneumonia: Qualifiers: Laterality: unspecified laterality Lung location: unspecified part of lung Pneumonia type: due to unspecified organism Qualified Code(s): J18.9 - Pneumonia, unspecified organism Code(s): J18.9 - Pneumonia, unspecified organism Status: Acute Assessment and Plan: -CXR w/ likely left lower lobe infiltrate consistent with pneumonia. -She has been started on azithromycin and ceftriaxone. -Attempt sputum for culture. (2) Acute and chronic respiratory failure with hypoxia: Code(s): J96.21 - Acute and chronic respiratory failure with hypoxia Status: Acute Assessment and Plan: -Secondary to COPD and pneumonia. Pulmonary embolism seems less likely by history. -She has been started on nebulizers and antibiotics. -Wean oxygen to baseline as tolerated. (3) Person under investigation for COVID-19: Code(s): Z20.822 - Contact with and (suspected) exposure to COVID-19 Status: Acute Assessment and Plan: -COVID negative (4) Chronic obstructive pulmonary disease: Code(s): J44.9 - Chronic obstructive pulmonary disease, unspecified Status: Acute Assessment and Plan: -She has been started on scheduled nebulizers. -Continue maintenance inhalers. (5) Type 2 diabetes mellitus: Code(s): E11.9 - Type 2 diabetes mellitus without complications Status: Acute Assessment and Plan: -Sliding scale and hypoglycemic protocol. Subjective Date/time seen: 02/18/21 15:11 Interval history: 70-year-old female with history of stroke COPD, chronic respiratory failure on 2 L nasal cannula, hypertension, seizures, and diabetes, admitted to the hospital for pneumonia. Pt is A/Ox3 (person, place, president - does not know year). Answers most questions appropriately. Complains of sob and is currently on 4L NC. Also has some chest tightness. Has been coughing productive with yellow sputum. Review of Systems Review of Systems: ROS unobtainable: Yes unobtainable due to mental status Exam Narrative: General: Chronically ill-appearing elderly female. Weight: 77.1 kg. BMI: 31.1. HEENT: She is wearing glasses. PERRL, EOMI. Sclerae anicteric. Moist mucous membranes. Oropharynx clear. Neck: Supple. No adenopathy or JVD. Respiratory: Respirations are nonlabored and she is speaking in full sentences. Lungs CTA bilaterally. Cardiovascular: Regular rate and rhythm with S1-S2. Gastrointestinal: Abdomen is soft, nontender, and nondistended with positive bowel sounds. Skin: Warm and dry. Extremities: No cyanosis, clubbing, or edema. Radial and pedal pulses intact. Negative Shayy sign bilaterally. Neurological: Alert. Cranial nerves 2-12 are grossly intact. Left side is weak with slightly contracted left hand. No gross focal deficits to casual conversation. Does not know what year it is. Answers most questions appropriatley and attempts to follow commands. Psychiatric: Agitated, confused. Objective Data Vital Signs Vital Signs: Vital Signs - 24 hr 02/17/21 20:00 02/17/21 20:02 02/17/21 20:13 Temperature 97.4 F L Pulse Rate 97 96 98 Respiratory Rate 18 20 20 Blood Pressure 142/70 H Pulse Oximetry 95 95 02/18/21 01:34 02/18/21 01:41 02/18/21 03:51 Temperature 97.4 F L Pulse Rate 96 100 99 Respiratory Rate 18 18 18 Blood Pressure 153/77 H Pulse Oximetry 99 02/18/21 04:00 02/18/21 04:21 02/18/21 08:00 Temperature Pulse Rate 96 105 H Respiratory Rate Blood Pressure Pulse Oximetry 99 97 02/18/21 12:00 02/18/21 12:38 02/18/21 14:00 Temperature 98.0 F Pulse Rate 106 H 99 100 Respiratory Rate 18 Blood Pressure 121/52 L Pulse Oximetry 92 Intake/Output Intake/Output: Intake & Output 02/15/21 02/16/21 02/17/21 02/18/21 23:59 23:59 23:59 23:59 Intake Total 820 1030 Balance 820 1030 Meds/Results M
[2021-02-18 16:36] LABS: Glucose Point of Care 160 mg/dl (65-105)
[2021-02-18] MEDS: QUEtiapine FUMARATE 25 MG TABLET 50 MG PO (20:24)
[2021-02-18] MEDS: DONEPEZIL HCL 10 MG TABLET PO (20:24)
[2021-02-19] VITALS (15 sets, daily range): BP systolic 99–124; BP diastolic 47–101; PULSE 79–96; RESP 16–20; TEMP 35.7–36.5; O2SAT 92–98
[2021-02-19] MEDS: IPRATROPIUM BR 0.02% INH SOLN 0.5 MG/2.5 ML VIAL INHALATION ×4 (01:55→19:27)
[2021-02-19] MEDS: ALBUTEROL SULFATE NEB 2.5 MG/0.5 ML INH 5 MG INHALATION ×4 (01:55→19:27)
[2021-02-19 05:56] LABS: Basophils Percent Auto 0.3 % (0.2-1.2); Eosinophils Percent Auto 0.1 % (0-4.4); Hematocrit 39.4 % (37.0-47.0); Hemoglobin 12.5 g/dL (12.0-15.0); Immature Granulocyte Absolute 0.05 K/mm3 (0.00-0.031); Immature Granulocyte Percent A 0.5 % (0-0.5); Immature Platelet Fraction Pct 2.6 % (0.9-11.2); Lymphocytes Absolute Auto 1.52 K/mm3 (0.9-3.2); Lymphocytes Percent Auto 14.9 % (18.3-44.2); Mean Corpuscular HGB Conc 31.7 g/dl (32-36); Mean Corpuscular Hemoglobin 33.2 pg (26-34); Mean Corpuscular Volume 104.5 fl (80-100); Mean Platelet Volume 9.2 fl (7.4-10.4); Monocytes Absolute Auto 1.2 K/mm3 (0.1-0.6); Monocytes Percent Auto 11.9 % (2.6-8.5); Neutrophils Absolute Auto 7.4 K/mm3 (1.3-6.7); Neutrophils Percent Auto 72.3 % (45.5-73.1); Platelet Count Result 311 k/mm3 (150-375); Red Blood Count 3.77 M/mm3 (4.2-5.4); Red Cell Distribution Width 13.2 % (11.5-14.5); White Blood Count 10.2 K/mm3 (4.5-10.0)
[2021-02-19 06:14] LABS: Alanine Aminotransferase 23 U/L (4-35); Albumin Level 4.4 g/dL (3.5-5.1); Alkaline Phosphatase 111 U/L (38-126); Anion Gap 10 mmol/L (8-16); Aspartate Amino Transferase 31 U/L (14-36); Bilirubin,Total 0.4 mg/dL (0.2-1.3); Blood Urea Nitrogen 28 mg/dL (7-17); Carbon Dioxide 30 mmol/L (22-30); Chloride 96 mmol/L (98-107); Estimated CRCL calculation 53 ml/min; Estimated Glomerular Filt Rate > 60; Glucose 192 mg/dL (65-110); Sodium 136 mmol/L (137-145)
[2021-02-19] MEDS: FLUTICASONE/SALMETEROL 115-21 MCG INHALER 1 PUFF 2 PUFF INHALATION ×2 (07:55→19:27)
[2021-02-19 08:04] LABS: Glucose Point of Care 98 mg/dl (65-105)
[2021-02-19] MEDS: GABAPENTIN 300 MG CAPSULE 600 MG PO ×3 (08:45→16:49)
[2021-02-19] MEDS: ALPRAZolam (*CRX) 0.25 MG TABLET PO ×2 (08:49→16:49)
[2021-02-19] MEDS: busPIRone HCL 10 MG TABLET 30 MG PO ×2 (08:50→16:50)
[2021-02-19] MEDS: PANTOPRAZOLE 40 MG TABLET PO ×2 (08:50→16:50)
[2021-02-19] MEDS: MIRABEGRON 50 MG ER TABLET PO (08:50)
[2021-02-19] MEDS: DULoxetine HCL 60 MG CAPSULE.DR PO (08:50)
[2021-02-19] MEDS: ASPIRIN 81 MG CHEWABLE TABLET PO (08:50)
[2021-02-19] MEDS: levETIRAcetam 250 MG TABLET 750 MG PO ×2 (08:51→20:01)
[2021-02-19] MEDS: ATORVASTATIN 40 MG TABLET PO (08:51)
[2021-02-19] MEDS: QUEtiapine FUMARATE 100 MG TABLET PO ×2 (08:51→20:01)
[2021-02-19] MEDS: HYDROcodone/acetaminophen (*CRX) 5-325 MG TABLET 1 TAB PO ×3 (08:54→16:49)
[2021-02-19] MEDS: ENOXAPARIN 40 MG/0.4 ML SYRINGE SUB-Q (09:01)
--- NOTE | 2021-02-19 11:25 | PM.IMPN ---
Progress Note: A&P Assessment and Plan (1) Pneumonia: Qualifiers: Laterality: unspecified laterality Lung location: unspecified part of lung Pneumonia type: due to unspecified organism Qualified Code(s): J18.9 - Pneumonia, unspecified organism Code(s): J18.9 - Pneumonia, unspecified organism Status: Acute Assessment and Plan: -CXR w/ likely left lower lobe infiltrate consistent with pneumonia. -She has been started on azithromycin and ceftriaxone. -Attempt sputum for culture. -On 3L currently, normally 2L at home (2) Acute and chronic respiratory failure with hypoxia: Code(s): J96.21 - Acute and chronic respiratory failure with hypoxia Status: Acute Assessment and Plan: -Secondary to COPD and pneumonia. Pulmonary embolism seems less likely by history. -She has been started on nebulizers and antibiotics. -Wean oxygen to baseline as tolerated. (3) Person under investigation for COVID-19: Code(s): Z20.822 - Contact with and (suspected) exposure to COVID-19 Status: Acute Assessment and Plan: -COVID negative (4) Chronic obstructive pulmonary disease: Code(s): J44.9 - Chronic obstructive pulmonary disease, unspecified Status: Acute Assessment and Plan: -She has been started on scheduled nebulizers. -Continue maintenance inhalers. (5) Type 2 diabetes mellitus: Code(s): E11.9 - Type 2 diabetes mellitus without complications Status: Acute Assessment and Plan: -Sliding scale and hypoglycemic protocol. Subjective Date/time seen: 02/19/21 11:25 Interval history: 70-year-old female with history of stroke COPD, chronic respiratory failure on 2 L nasal cannula, hypertension, seizures, and diabetes, admitted to the hospital for pneumonia. Pt is A/Ox4 today and answers most questions appropriately. Still has sob but is improved, currently on 3L NC. Also has some chest tightness. Has been coughing productive with yellow sputum but this is also improving. Review of Systems Review of Systems: General: Denies fevers, chills Eyes: Denies vision changes or eye pain ENT: Denies nasal congestion or sore throat Respiratory: + cough, + shortness of breath Cardiovascular: + chest pain, no palpitations or lower extremity edema Gastrointestinal: Denies abdominal pain, vomiting, or diarrhea Genitourinary: Denies dysuria or urinary frequency Musculoskeletal: +joint pain Neurological: Denies headache, paraesthesias, or motor weakness Integumentary: Denies rash Exam Narrative: General: Chronically ill-appearing elderly female. Weight: 77.1 kg. BMI: 31.1. HEENT: She is wearing glasses. PERRL, EOMI. Sclerae anicteric. Moist mucous membranes. Oropharynx clear. Neck: Supple. No adenopathy or JVD. Respiratory: Respirations are nonlabored and she is speaking in full sentences. Lungs CTA bilaterally. Cardiovascular: Regular rate and rhythm with S1-S2. Gastrointestinal: Abdomen is soft, nontender, and nondistended with positive bowel sounds. Skin: Warm and dry. Extremities: No cyanosis, clubbing, or edema. Radial and pedal pulses intact. Negative Shayy sign bilaterally. Neurological: Alert. Cranial nerves 2-12 are grossly intact. Left side is weak with slightly contracted left hand. No gross focal deficits to casual conversation. A/Ox4. Psychiatric: Anxious. Objective Data Vital Signs Vital Signs: Vital Signs - 24 hr 02/18/21 12:00 02/18/21 12:38 02/18/21 14:00 Temperature 98.0 F Pulse Rate 106 H 99 100 Respiratory Rate 18 Blood Pressure 121/52 L Pulse Oximetry 92 02/18/21 16:00 02/18/21 19:47 02/18/21 20:00 Temperature 96.8 F L Pulse Rate 96 94 91 Respiratory Rate 17 Blood Pressure 128/68 Pulse Oximetry 96 02/18/21 20:30 02/18/21 20:38 02/19/21 00:00 Temperature Pulse Rate 98 97 86 Respiratory Rate 18 18 Blood Pressure Pulse Oximetry 92 92 02/19
[2021-02-19 11:35] LABS: Glucose Point of Care 133 mg/dl (65-105)
[2021-02-19 16:36] LABS: Glucose Point of Care 133 mg/dl (65-105)
[2021-02-19] MEDS: DONEPEZIL HCL 10 MG TABLET PO (20:01)
[2021-02-19] MEDS: QUEtiapine FUMARATE 25 MG TABLET 50 MG PO (20:01)
[2021-02-19 21:26] LABS: Glucose Point of Care 116 mg/dl (65-105)
[2021-02-20] VITALS (12 sets, daily range): BP systolic 119–131; BP diastolic 56–70; PULSE 80–91; RESP 16–24; TEMP 36.1–36.9; O2SAT 93–97
--- NOTE | 2021-02-20 01:59 | PCRCNOTE ---
Pt requested not to be woken up for 02:00 neb treatment. Pt currently sleeping. Nurse advised to call if pt wakes up and wants treatment.
[2021-02-20 06:28] LABS: Basophils Absolute Auto 0.1 K/mm3 (0.0-0.1); Eosinophils Absolute Auto 0.1 K/mm3 (0-0.3); Eosinophils Percent Auto 0.9 % (0-4.4); Hematocrit 37.2 % (37.0-47.0); Hemoglobin 11.7 g/dL (12.0-15.0); Immature Granulocyte Absolute 0.03 K/mm3 (0.00-0.031); Immature Granulocyte Percent A 0.4 % (0-0.5); Lymphocytes Absolute Auto 1.99 K/mm3 (0.9-3.2); Lymphocytes Percent Auto 24.3 % (18.3-44.2); Mean Corpuscular HGB Conc 31.5 g/dl (32-36); Mean Corpuscular Hemoglobin 32.1 pg (26-34); Mean Corpuscular Volume 101.9 fl (80-100); Mean Platelet Volume 8.6 fl (7.4-10.4); Monocytes Percent Auto 12.2 % (2.6-8.5); Neutrophils Percent Auto 61.2 % (45.5-73.1); Platelet Count Result 245 k/mm3 (150-375); Red Blood Count 3.65 M/mm3 (4.2-5.4); Red Cell Distribution Width 13.8 % (11.5-14.5); White Blood Count 8.2 K/mm3 (4.5-10.0)
[2021-02-20 06:55] LABS: Anion Gap 8 mmol/L (8-16); Blood Urea Nitrogen 33 mg/dL (7-17); Calcium 8.4 mg/dL (8.4-10.2); Carbon Dioxide 33 mmol/L (22-30); Chloride 96 mmol/L (98-107); Estimated CRCL calculation 53 ml/min; Estimated Glomerular Filt Rate > 60; Glucose 146 mg/dL (65-110); Potassium 3.8 mmol/L (3.4-5.0); Sodium 137 mmol/L (137-145)
[2021-02-20 07:49] LABS: Glucose Point of Care 97 mg/dl (65-105)
[2021-02-20] MEDS: PANTOPRAZOLE 40 MG TABLET PO ×2 (08:07→16:21)
[2021-02-20] MEDS: MIRABEGRON 50 MG ER TABLET PO (08:07)
[2021-02-20] MEDS: QUEtiapine FUMARATE 100 MG TABLET PO ×2 (08:07→19:56)
[2021-02-20] MEDS: GABAPENTIN 300 MG CAPSULE 600 MG PO ×3 (08:07→16:20)
[2021-02-20] MEDS: ENOXAPARIN 40 MG/0.4 ML SYRINGE SUB-Q (08:07)
[2021-02-20] MEDS: ATORVASTATIN 40 MG TABLET PO (08:07)
[2021-02-20] MEDS: DULoxetine HCL 60 MG CAPSULE.DR PO (08:07)
[2021-02-20] MEDS: ASPIRIN 81 MG CHEWABLE TABLET PO (08:07)
[2021-02-20] MEDS: ALPRAZolam (*CRX) 0.25 MG TABLET PO ×2 (08:08→16:20)
[2021-02-20] MEDS: levETIRAcetam 250 MG TABLET 750 MG PO ×2 (08:08→19:57)
[2021-02-20] MEDS: busPIRone HCL 10 MG TABLET 30 MG PO ×2 (08:08→16:20)
[2021-02-20] MEDS: HYDROcodone/acetaminophen (*CRX) 5-325 MG TABLET 1 TAB PO ×3 (08:08→16:20)
[2021-02-20] MEDS: ALBUTEROL SULFATE NEB 2.5 MG/0.5 ML INH 5 MG INHALATION ×3 (10:18→20:11)
[2021-02-20] MEDS: IPRATROPIUM BR 0.02% INH SOLN 0.5 MG/2.5 ML VIAL INHALATION ×3 (10:18→20:11)
[2021-02-20] MEDS: FLUTICASONE/SALMETEROL 115-21 MCG INHALER 1 PUFF 2 PUFF INHALATION ×2 (10:19→20:11)
[2021-02-20 11:41] LABS: Glucose Point of Care 113 mg/dl (65-105)
[2021-02-20 16:42] LABS: Glucose Point of Care 117 mg/dl (65-105)
--- NOTE | 2021-02-20 17:13 | PM.IMPN ---
Progress Note: A&P Assessment and Plan (1) Pneumonia: Qualifiers: Laterality: unspecified laterality Lung location: unspecified part of lung Pneumonia type: due to unspecified organism Qualified Code(s): J18.9 - Pneumonia, unspecified organism Code(s): J18.9 - Pneumonia, unspecified organism Status: Acute Assessment and Plan: -CXR w/ likely left lower lobe infiltrate consistent with pneumonia. -She has been started on azithromycin and ceftriaxone. -Attempt sputum for culture. -On 3L currently, normally 2L at home? (2) Acute and chronic respiratory failure with hypoxia: Code(s): J96.21 - Acute and chronic respiratory failure with hypoxia Status: Acute Assessment and Plan: -Secondary to COPD and pneumonia. Pulmonary embolism seems less likely by history. -She has been started on nebulizers and antibiotics. -Wean oxygen to baseline as tolerated. (3) Person under investigation for COVID-19: Code(s): Z20.822 - Contact with and (suspected) exposure to COVID-19 Status: Acute Assessment and Plan: -COVID negative (4) Chronic obstructive pulmonary disease: Code(s): J44.9 - Chronic obstructive pulmonary disease, unspecified Status: Acute Assessment and Plan: -She has been started on scheduled nebulizers. -Continue maintenance inhalers. (5) Type 2 diabetes mellitus: Code(s): E11.9 - Type 2 diabetes mellitus without complications Status: Acute Assessment and Plan: -Sliding scale and hypoglycemic protocol. Subjective Date/time seen: 02/20/21 17:13 Interval history: 70-year-old female with history of stroke COPD, chronic respiratory failure on 2 L nasal cannula, hypertension, seizures, and diabetes, admitted to the hospital for pneumonia. Pt is A/Ox4 today and feeling much better. CP gone. SOB at her baseline. On 3L NC. Cough improved. No fevers. Review of Systems Review of Systems: General: Denies fevers, chills Eyes: Denies vision changes or eye pain ENT: Denies nasal congestion or sore throat Respiratory: + cough, + shortness of breath Cardiovascular: denies chest pain, no palpitations or lower extremity edema Gastrointestinal: Denies abdominal pain, vomiting, or diarrhea Genitourinary: Denies dysuria or urinary frequency Musculoskeletal: +joint pain Neurological: Denies headache, paraesthesias, or motor weakness Integumentary: Denies rash Exam Narrative: General: Chronically ill-appearing elderly female. Weight: 77.1 kg. BMI: 31.1. HEENT: She is wearing glasses. PERRL, EOMI. Sclerae anicteric. Moist mucous membranes. Oropharynx clear. Neck: Supple. No adenopathy or JVD. Respiratory: Respirations are nonlabored and she is speaking in full sentences. Lungs CTA bilaterally. Cardiovascular: Regular rate and rhythm with S1-S2. Gastrointestinal: Abdomen is soft, nontender, and nondistended with positive bowel sounds. Skin: Warm and dry. Extremities: No cyanosis, clubbing, or edema. Radial and pedal pulses intact. Negative Shayy sign bilaterally. Neurological: Alert. Cranial nerves 2-12 are grossly intact. Left side is weak with slightly contracted left hand. No gross focal deficits to casual conversation. A/Ox4. Psychiatric: Anxious. Objective Data Vital Signs Vital Signs: Vital Signs - 24 hr 02/19/21 19:28 02/19/21 19:40 02/19/21 20:46 Temperature 97.7 F Pulse Rate 92 89 95 Respiratory Rate 16 16 20 Blood Pressure 99/47 L Pulse Oximetry 93 92 02/20/21 06:00 02/20/21 08:00 02/20/21 10:20 Temperature 97.0 F L Pulse Rate 89 88 Respiratory Rate 24 H 16 Blood Pressure 130/70 Pulse Oximetry 97 97 94 02/20/21 10:31 02/20/21 10:56 02/20/21 14:33 Temperature 98.4 F Pulse Rate 86 91 Respiratory Rate 16 18 Blood Pressure 131/56 L Pulse Oximetry 93 96 02/20/21 15:18 02/20/21 15:28 Temperature Pulse Rate 80 84 Respiratory Rate 16 16 Bl
[2021-02-20] MEDS: DONEPEZIL HCL 10 MG TABLET PO (19:56)
[2021-02-20] MEDS: QUEtiapine FUMARATE 25 MG TABLET 50 MG PO (19:56)
[2021-02-20 20:13] LABS: Glucose Point of Care 117 mg/dl (65-105)
[2021-02-21 05:58] VITALS: BP 140/68; PULSE 92; RESP 18; TEMP 35.7; O2SAT 94
[2021-02-21 07:42] LABS: Glucose Point of Care 112 mg/dl (65-105)
[2021-02-21 08:00] VITALS: O2SAT 95
[2021-02-21] MEDS: levETIRAcetam 250 MG TABLET 750 MG PO (08:06)
[2021-02-21] MEDS: DULoxetine HCL 60 MG CAPSULE.DR PO (08:06)
[2021-02-21] MEDS: ENOXAPARIN 40 MG/0.4 ML SYRINGE SUB-Q (08:06)
[2021-02-21] MEDS: ASPIRIN 81 MG CHEWABLE TABLET PO (08:06)
[2021-02-21] MEDS: HYDROcodone/acetaminophen (*CRX) 5-325 MG TABLET 1 TAB PO ×2 (08:06→12:11)
[2021-02-21] MEDS: ALPRAZolam (*CRX) 0.25 MG TABLET PO (08:06)
[2021-02-21] MEDS: ATORVASTATIN 40 MG TABLET PO (08:07)
[2021-02-21] MEDS: PANTOPRAZOLE 40 MG TABLET PO (08:07)
[2021-02-21] MEDS: QUEtiapine FUMARATE 100 MG TABLET PO (08:07)
[2021-02-21] MEDS: MIRABEGRON 50 MG ER TABLET PO (08:07)
[2021-02-21] MEDS: busPIRone HCL 10 MG TABLET 30 MG PO (08:07)
[2021-02-21] MEDS: GABAPENTIN 300 MG CAPSULE 600 MG PO ×2 (08:08→12:11)
--- NOTE | 2021-02-21 09:20 | PM.DS ---
DS: Admitting Diagnosis Discharge Date 02/21/21 Admitting Diagnosis pneumonia DS: Discharge Diagnosis Discharge Diagnosis (1) Pneumonia: Qualifiers: Laterality: unspecified laterality Lung location: unspecified part of lung Pneumonia type: due to unspecified organism Qualified Code(s): J18.9 - Pneumonia, unspecified organism Code(s): J18.9 - Pneumonia, unspecified organism Status: Acute Assessment and Plan: -CXR w/ left lower lobe infiltrate consistent with pneumonia. -She has been started on azithromycin and ceftriaxone. -Was on 4L of oxygen on admission but has now been weaned down to her baseline of 2L -Leukocytosis on arrival has resolved, no fever or tachycardia -She is well appearing at this time in no distress, overall feels much better -Will switch to Augmentin and Azithromycin PO, stable for dc back to long term (2) Acute and chronic respiratory failure with hypoxia: Code(s): J96.21 - Acute and chronic respiratory failure with hypoxia Status: Acute Assessment and Plan: -Secondary to COPD and pneumonia. -Tx w/ nebs and abx, see above. -Weaned oxygen to baseline as tolerated. She is currently at her baseline with no complaints. (3) Person under investigation for COVID-19: Code(s): Z20.822 - Contact with and (suspected) exposure to COVID-19 Status: Acute Assessment and Plan: -COVID negative (4) Chronic obstructive pulmonary disease: Code(s): J44.9 - Chronic obstructive pulmonary disease, unspecified Status: Acute Assessment and Plan: -As above (5) Type 2 diabetes mellitus: Code(s): E11.9 - Type 2 diabetes mellitus without complications Status: Acute Assessment and Plan: -seems to be diet controlled, she does not have any diabetic home meds, blood sugar has been stable for duration of visit without requiring any insulin DS: Summary Hospital Course Reason for hospitalization: 70-year-old female with history of stroke COPD, chronic respiratory failure on 2 L nasal cannula, hypertension, seizures, and diabetes, admitted to the hospital for pneumonia. Please see HPI for further details. Hospital Course: Please see above for details of hospital course. Status at Discharge Cognitive/behavioral status at discharge: stable Functional status at discharge: wheelchair bound Time Spent with Patient Time attestation: Total time spent providing and/or coordinating discharge services: 32 Time spent: Greater than 30 minutes Exam Narrative: General: Chronically ill-appearing elderly female. Weight: 77.1 kg. BMI: 31.1. HEENT: She is wearing glasses. PERRL, EOMI. Sclerae anicteric. Moist mucous membranes. Oropharynx clear. Neck: Supple. No adenopathy or JVD. Respiratory: Respirations are nonlabored and she is speaking in full sentences. Lungs CTA bilaterally. Cardiovascular: Regular rate and rhythm with S1-S2. Gastrointestinal: Abdomen is soft, nontender, and nondistended with positive bowel sounds. Skin: Warm and dry. Extremities: No cyanosis, clubbing, or edema. Radial and pedal pulses intact. Negative Shayy sign bilaterally. Neurological: Alert. Cranial nerves 2-12 are grossly intact. Left side is weak with slightly contracted left hand. No gross focal deficits to casual conversation. A/Ox4. Psychiatric: Anxious. DS: Data Data Completed and Pending Labs on day of discharge: Labs from last 24 hours 02/21/21 02/20/21 02/20/21 07:37 20:07 16:38 POC Capillary Glucose 112 H 117 H 117 H 02/20/21 11:32 POC Capillary Glucose 113 H Preliminary micro results at discharge 02/17/21 11:07 Blood Culture - Preliminary Blood 02/17/21 11:07 Blood Culture - Preliminary Blood Discharge Plan Discharge Attending physician on discharge: Antoni Mccormick Discharging Clinician: Liberty Leigh Anticipated Discharge Date/Time: 02/21/21 09:35
[2021-02-21] MEDS: ALBUTEROL SULFATE NEB 2.5 MG/0.5 ML INH 5 MG INHALATION (09:55)
[2021-02-21] MEDS: IPRATROPIUM BR 0.02% INH SOLN 0.5 MG/2.5 ML VIAL INHALATION (09:55)
[2021-02-21] MEDS: FLUTICASONE/SALMETEROL 115-21 MCG INHALER 1 PUFF 2 PUFF INHALATION (09:57)
[2021-02-21 09:58] VITALS: PULSE 84; PULSE 85; RESP 22; O2SAT 98
[2021-02-21 10:07] VITALS: PULSE 90; PULSE 94; RESP 20; O2SAT 98
[2021-02-21 11:25] LABS: Glucose Point of Care 127 mg/dl (65-105)
[2021-02-21 12:27] LABS: EDCOVIDSCREEN Negative (Negative)
--- NOTE | 2021-02-25 12:05 | PC.NURSE ---
Blood cx are negative.
== END 2021-02-21 14:54 | DRG 193 ==
LOC: ANHED 11:36 → ANH3MEDSUR 15:11 → ANH3MED 02-18 06:52 → ANH3MEDSUR 02-25 09:33
PROVIDERS: Physician Assistant; Admitting Provider Family Medicine; Emergency Provider Emergency Medicine; Visit Provider Physician Assistant
DX: J18.9 Pneumonia, unspecified organism (principal); J96.21 Acute and chronic respiratory failure with hypoxia; I69.354 Hemiplegia and hemiparesis following cerebral infarction affecting left non-dominant side; J44.0 Chronic obstructive pulmonary disease with (acute) lower respiratory infection; Z99.81 Dependence on supplemental oxygen; Z20.822 Contact with and (suspected) exposure to COVID-19; E11.42 Type 2 diabetes mellitus with diabetic polyneuropathy; I10 Essential (primary) hypertension; K21.9 Gastro-esophageal reflux disease without esophagitis; R56.9 Unspecified convulsions; Z66 Do not resuscitate; Z87.891 Personal history of nicotine dependence; Z88.2 Allergy status to sulfonamides; Z79.899 Other long term (current) drug therapy
CPT/HCPCS: 36415; 36600; 71046; 80048; 80053; 80076; 82607; 82728; 82746; 82805; 82948; 83615; 83690; 84484; 85025; 85055; 85610; 85730; 86140; 87040; 87426; 93005; 94640; 99285; A9270; C9803; J0456; J0696; J1650; J1956; J2543; J2930; J3370; U0003; U0005

== ENCOUNTER 2021-03-27 06:22 | Inpatient (IN) | payer MEDICARE, MEDICAID, SELFPAY ==
[2021-03-27] VITALS (31 sets, daily range): BP systolic 93–175; BP diastolic 57–96; PULSE 89–117; RESP 15–27; TEMP 36.2–36.6; O2SAT 94–100; BMI 35.2
--- NOTE | ~2021-03-27 | XR_ITS ---
XR chest 1V portable DATE: 03/27/2021 06:52 INDICATION: Unresponsive at group home. Wet lung sounds. TECHNIQUE: Portable AP chest on 03/27/2021 at 0649 hours COMPARISON: 02/17/2021 AP and lateral chest FINDINGS: There is very prominent patchy consolidation in the left lung, relatively sparing only the left apex. There is patchy infiltrate in the consolidation in the right mid and lower lung zones. Cardiomegaly. Aortic calcification. No pneumothorax. Diffuse osteopenia. IMPRESSION: Bilateral patchy consolidating infiltrates, particularly prominent on the left Reviewed, dictated and finalized at location A. AND BEVERAGE CHECKER
--- NOTE | ~2021-03-27 | XR_ITS ---
EXAMINATION: XR chest 2V DATE: 04/01/2021 11:31 INDICATION: Pneumonia. TECHNIQUE: Frontal and lateral views of the chest were obtained. COMPARISON: Chest single view 03/27/21, thoracic spine CT 09/17/2020 FINDINGS: There are mild airspace opacities in all lung zones bilaterally. There is bandlike atelecta sis in the midlung zones bilaterally. No pleural effusion or pneumothorax. Cardiomegaly is noted. IMPRESSION: 1. Mild diffuse lung disease with interval improvement, likely a combination of atelectasis and pneum onia. 2. Cardiomegaly. Reviewed, dictated and finalized at location B. OGICAL MANAGER IMPRESSION: 1. Mild diffuse lung disease with interval improvement, likely a combination of atelectasis and pneumonia. 2. Cardiomegaly.
--- NOTE | 2021-03-27 06:24 | ECG_ITS ---
Measurements Intervals [place] Rate: 113 P: 52 VA: 149 QRS: 18 QRSD: 84 T: 60 QT: 322 QTc: 442 Interpretive Statements SINUS TACHYCARDIA ABNORMAL ECG Electronically Signed On 03-27-2021 7:04:25 DIRECTOR OF [employer]ERING SALES by Yordan Arndt D.O.
--- NOTE | 2021-03-27 06:39 | ED.SOB ---
HPI - SOB/Dyspnea General Chief Complaint: Shortness of Breath/Dyspnea <Franco Hodges MD - Last Filed: 03/27/21 06:49> Stated Complaint: DIFF BREATHING O2-78% <Franco Hodges MD - Last Filed: 03/27/21 06:49> Time Seen by Provider: 03/27/21 06:29 <Franco Hodges MD - Last Filed: 03/27/21 06:49> Source: EMS <Franco Hodges MD - Last Filed: 03/27/21 06:49> Mode of arrival: EMS <Franco Hodges MD - Last Filed: 03/27/21 06:49> Limitations: altered mental status and clinical condition <Franco Hodges MD - Last Filed: 03/27/21 06:49> History of Present Illness HPI Narrative: Patient is a 71-year-old female brought in by EMS from a prison in respiratory distress and decreased responsiveness. Patient's oxygen saturation at the prison was in the 50s, EMS placed her on 15 L nonrebreather. Patient has a history of respiratory failure and COPD. Patient was recently discharged from this hospital approximately 2 weeks ago, was admitted secondary to pneumonia, respiratory failure and COPD. Patient is a DNR. <Franco Hodges MD - Last Filed: 03/27/21 06:49> Related Data Home Medications: Home Medications Medication Instructions Recorded Confirmed Eunice Yang See Rx Instructions .ROUTE .COMPLEX 02/17/21 02/17/21 Myrbetriq 50 mg PO DAILY 02/17/21 02/17/21 alprazolam [Xanax] 0.25 mg PO BID 02/17/21 02/17/21 atorvastatin 40 mg PO DAILY 02/17/21 02/17/21 buspirone 30 mg PO BID 02/17/21 02/17/21 donepezil 10 mg PO HS 02/17/21 02/17/21 duloxetine 60 mg PO AC 02/17/21 02/17/21 gabapentin 600 mg PO TID 02/17/21 02/17/21 hydrocodone-acetaminophen 1 tablet PO TID 02/17/21 02/17/21 ibuprofen 400 mg PO DAILY 02/17/21 02/17/21 levetiracetam 750 mg PO BID 02/17/21 02/17/21 omeprazole 40 mg PO DAILY 02/17/21 02/17/21 quetiapine 50 mg PO HS 02/17/21 02/17/21 quetiapine 100 mg PO BID 02/17/21 02/17/21 <Franco Hodges MD - Last Filed: 03/27/21 06:49> Allergies/Adverse Reactions: Allergies Allergy/AdvReac Type Severity Reaction Status Date / Time Sulfa (Sulfonamide Allergy Unknown Unknown Verified 02/17/21 09:04 Antibiotics) <Franco Hodges MD - Last Filed: 03/27/21 06:49> Review of Systems Review of Systems: ROS unobtainable: Yes unobtainable due to medical condition <Franco Hodges MD - Last Filed: 03/27/21 06:49> [facility] Past Medical History Medical History: Medical History Anemia Anxiety Cerebrovascular accident (12/2016) Resultant left hemiplegia. Chronic obstructive pulmonary disease Chronic pain Cognitive communication deficit Essential hypertension Gastroesophageal reflux disease Insomnia Major depressive disorder Polyneuropathy Seizures Type 2 diabetes mellitus <Franco Hodges MD - Last Filed: 03/27/21 06:49> Surgical History Surgical History: Surgical History History of colonoscopy History of esophagogastroduodenoscopy History of open reduction and internal fixation (ORIF) procedure ORIF left hip fracture. History of partial hysterectomy History of tonsillectomy <Franco Hodges MD - Last Filed: 03/27/21 06:49> Family History Family History: Family History Father Diabetes mellitus PAD (peripheral artery disease) Hx of BKA Mother Cerebrovascular accident Sibling Diabetes mellitus <Franco Hodges MD - Last Filed: 03/27/21 06:49> Social History Social History: Social History Social History: Surrogate decision maker: KORI Carreon. Code status: Do not resuscitate. Smoking packs per day: 1 Smoking cigarettes per day: 20.0 Years smoked: 50 Smoking pack-years: 50.00 Smoking status: Former smoker Tobacco type: cigarettes
[2021-03-27 07:05] LABS: Alveolar/Arterial O2 Gradient 465.5 mmHg; Carboxyhemoglobin 0.9 % THb (0-2.0); Fractional Inspired Oxygen 90 %; HCO3 ABG 36.4 mEq/l (22.0-26.0); Methemoglobin ABG 0.4 %THb (0-1.5); Oxygen Content ABG 15.7 %vol (16.0-22.0); Oxygen Saturation ABG 95.7 % (95.0-100.0); Oxyhemoglobin 94.9 % THb (90.0-100.0); PO2 ABG 93.2 mmHg (80.0-100.0); PO2 FiO2 Ratio Arterial Blood 1.04 %; Reduced Hemoglobin 3.8 %THb (0-5.0); Total Hemoglobin 11.7 g/dL (12.0-18.0)
[2021-03-27 07:09] LABS: Device NON-REBREATHER MASK; Modified Allen's Test Pass; Site Drawn LEFT RADIAL
[2021-03-27] MEDS: IPRATROPIUM BR 0.02% INH SOLN 0.5 MG/2.5 ML VIAL INHALATION ×2 (07:14→15:32)
[2021-03-27] MEDS: ALBUTEROL SULFATE NEB 2.5 MG/0.5 ML INH 5 MG INHALATION ×2 (07:15→15:31)
[2021-03-27 07:24] LABS: Basophils Absolute Auto 0.1 K/mm3 (0.0-0.1); Basophils Percent Auto 0.5 % (0.2-1.2); Eosinophils Percent Auto 0.1 % (0-4.4); Hemoglobin 10.4 g/dL (12.0-15.0); Immature Granulocyte Absolute 0.31 K/mm3 (0.00-0.031); Immature Granulocyte Percent A 1.4 % (0-0.5); Mean Corpuscular HGB Conc 30.6 g/dl (32-36); Mean Corpuscular Hemoglobin 32.2 pg (26-34); Mean Corpuscular Volume 105.3 fl (80-100); Mean Platelet Volume 9.3 fl (7.4-10.4); Monocytes Percent Auto 9.3 % (2.6-8.5); Neutrophils Absolute Auto 17.8 K/mm3 (1.3-6.7); Neutrophils Percent Auto 82.7 % (45.5-73.1); Platelet Count Result 227 k/mm3 (150-375); Red Blood Count 3.23 M/mm3 (4.2-5.4); Red Cell Distribution Width 14.6 % (11.5-14.5); White Blood Count 21.5 K/mm3 (4.5-10.0)
[2021-03-27 07:36] LABS: Alanine Aminotransferase 16 U/L (4-35); Albumin Level 3.6 g/dL (3.5-5.1); Alkaline Phosphatase 174 U/L (38-126); Anion Gap 6 mmol/L (8-16); Aspartate Amino Transferase 17 U/L (14-36); Bilirubin,Total 0.7 mg/dL (0.2-1.3); Blood Urea Nitrogen 21 mg/dL (7-17); Calcium 8.8 mg/dL (8.4-10.2); Carbon Dioxide 34 mmol/L (22-30); Chloride 97 mmol/L (98-107); Estimated Glomerular Filt Rate 55; Glucose 146 mg/dL (65-110); Potassium 4.7 mmol/L (3.4-5.0); Sodium 137 mmol/L (137-145)
[2021-03-27 07:37] LABS: INR 1.1; Prothrombin Time 14.4 Seconds (11.1-14.7)
[2021-03-27 07:38] LABS: Partial Thromboplastin Time 28.4 SECONDS (22.3-36.8)
[2021-03-27 07:48] LABS: Troponin I < 0.012 ng/mL (0.000-0.034)
[2021-03-27 09:01] LABS: EDCOVIDSCREEN Negative (Negative)
--- NOTE | 2021-03-27 09:08 | PM.IMHP ---
H&P: HPI History of Present Illness Date/Time: 03/27/21 09:08 CC: Cough shortness of breath. History of present illness: This is a 71-year-old lady with a past medical history including but not limited to stroke COPD, chronic respiratory failure on 2 L nasal cannula, hypertension, seizures, and diabetes who presented to the emergency department earlier today via EMS for evaluation of cough and shortness of breath and decreased responsiveness. Per chart review, she she requires 3 L of oxygen supplementation majority of the time. At the longterm she was noted to be in respiratory distress and present decreased responsiveness. Patient's oxygen saturation at the longterm was in the 50s, EMS placed her on 15 L nonrebreather. Patient has a history of respiratory failure with oxygen requirement as above and COPD. Patient was recently discharged from this hospital approximately 2 weeks ago, was admitted secondary to pneumonia, respiratory failure and COPD. Patient is a DNR. She has also had a cough productive of yellow sputum and reports mild tightness in her chest with deep inspiration. Chest x-ray today showed left lower lobe airspace disease which may represent pneumonia and/or atelectasis and she is being admitted in this setting. She is fully vaccinated against COVID . At the time of my evaluation the patient is a pretty on the BiPAP and cannot contribute meaningfully to her history. [id number] Shayla was at the bedside. Her brother wants her to be full code unless she decides otherwise. This afternoon the patient oxygenation status improved and BiPAP was. Momentarily. She confirmed that she is a DNR/DNI. Chief Complaint: Shortness of breath and hypoxia. Review of Systems Review of Systems: ROS unobtainable: Yes unobtainable due to medical condition [facility] Past Medical History Medical History Anemia Anxiety Cerebrovascular accident (12/2016) Resultant left hemiplegia. Chronic obstructive pulmonary disease Chronic pain Cognitive communication deficit Essential hypertension Gastroesophageal reflux disease Insomnia Major depressive disorder Polyneuropathy Seizures Type 2 diabetes mellitus Surgical History Surgical History History of colonoscopy History of esophagogastroduodenoscopy History of open reduction and internal fixation (ORIF) procedure ORIF left hip fracture. History of partial hysterectomy History of tonsillectomy Family History Family History Father Diabetes mellitus PAD (peripheral artery disease) Hx of BKA Mother Cerebrovascular accident Sibling Diabetes mellitus Social History Social History Social History: Surrogate decision maker: KORI Carreon. Code status: Do not resuscitate. Smoking packs per day: 1 Smoking cigarettes per day: 20.0 Years smoked: 50 Smoking pack-years: 50.00 Smoking status: Former smoker Tobacco type: cigarettes Second hand tobacco smoke exposure: No Alcohol intake: never Alcohol use details: History of alcohol abuse, quit 16 years ago. Substance use: never Additional living arrangements comments: Resident at [facility]. 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 Meds Home Medications and Allergies Home Medications Medication Instructions Recorded Confirmed Type Breo Ellipta See Rx Instructions .ROUTE .COMPLEX 02/17/21 02/17/21 History Myrbetriq 50 mg PO DAILY 02/17/21 02/17/21 History alprazolam [Xanax] 0.25 mg PO BID 02/17/21 02/17/21 History atorvastatin 40 mg PO DAILY 02/17/21 02/17/21 History buspirone 30 mg PO BID 02/17/21 02/17/21 History donepezil 10 mg PO HS 02/17/21 02/17/21 History duloxetine
[2021-03-27] MEDS: PIPERACILLIN/TAZOBACTAM SOD 4.5 GM in SODIUM CHLORIDE 0.9% IV 100 ML 200 ML IVPB ×2 (11:10→18:40)
[2021-03-27] MEDS: LIDOCAINE 5% PATCH 1 PATCH TRANSDERM (16:05)
[2021-03-27] MEDS: MORPHINE SULFATE (*CRX) 2 MG/ML INJ 1 MG IV PUSH (18:16)
--- NOTE | 2021-03-27 22:00 | ADMGEN ---
This patient, Constance Castro, was admitted to IMU Room 207-01 at 2200. Patient/family oriented to hospital policies and general routines including ID bracelet, bed and alarms, visiting hours, pain management, procedures, bathroom and other care routines, personal items, smoking policy, room service/diet, and visiting hours. Information on how to activate the Rapid Response Team has been discussed. Patient/Family are encouraged to report perceived risks to care and to ask questions if they do not understand what they are told or what they should do.
--- NOTE | 2021-03-27 22:56 | PC.NURSE ---
no medication list from detention. no answer from family, patient unable to answer questions due to loc. called [facility] and requested that a list of medications be sent over. that was done at 5088.
--- NOTE | 2021-03-27 23:35 | PCRCNOTE ---
Nebulizer treatment scheduled for 03/27/21 at 20:00 not administered. RT not available during administration window due to priorities in Emergency Department.
[2021-03-28] VITALS (18 sets, daily range): BP systolic 115–167; BP diastolic 76–89; PULSE 98–112; RESP 18–20; TEMP 36.5–37.1; O2SAT 93–100
[2021-03-28] MEDS: PIPERACILLIN/TAZOBACTAM SOD 4.5 GM in SODIUM CHLORIDE 0.9% IV 100 ML 200 ML IVPB ×5 (00:13→23:07)
[2021-03-28] MEDS: ALBUTEROL SULFATE NEB 2.5 MG/0.5 ML INH 5 MG INHALATION ×4 (02:48→19:36)
[2021-03-28] MEDS: IPRATROPIUM BR 0.02% INH SOLN 0.5 MG/2.5 ML VIAL INHALATION ×4 (02:48→19:36)
[2021-03-28 05:12] LABS: Basophils Absolute Auto 0.1 K/mm3 (0.0-0.1); Basophils Percent Auto 0.7 % (0.2-1.2); Eosinophils Absolute Auto 0.1 K/mm3 (0-0.3); Eosinophils Percent Auto 0.8 % (0-4.4); Hematocrit 37.9 % (37.0-47.0); Hemoglobin 11.9 g/dL (12.0-15.0); Immature Granulocyte Percent A 1.7 % (0-0.5); Lymphocytes Absolute Auto 0.86 K/mm3 (0.9-3.2); Lymphocytes Percent Auto 7.2 % (18.3-44.2); Mean Corpuscular HGB Conc 31.4 g/dl (32-36); Mean Corpuscular Hemoglobin 32.3 pg (26-34); Mean Platelet Volume 9.5 fl (7.4-10.4); Monocytes Absolute Auto 0.8 K/mm3 (0.1-0.6); Monocytes Percent Auto 6.4 % (2.6-8.5); Neutrophils Percent Auto 83.2 % (45.5-73.1); Platelet Count Result 245 k/mm3 (150-375); Red Blood Count 3.68 M/mm3 (4.2-5.4); Red Cell Distribution Width 14.1 % (11.5-14.5)
[2021-03-28] MEDS: LIDOCAINE 5% PATCH 1 PATCH TRANSDERM (07:49)
[2021-03-28] MEDS: MORPHINE SULFATE (*CRX) 2 MG/ML INJ 1 MG IV PUSH ×2 (09:15→15:57)
[2021-03-28 09:37] LABS: SARS-CoV-2 RNA PCR Negative
[2021-03-28] MEDS: ACETAMINOPHEN/CODEINE ELIXIR (*CRX) 120-12 MG/5 ML UDC 10 ML PO ×2 (10:36→20:30)
--- NOTE | 2021-03-28 10:48 | PM.IMPN ---
Progress Note: A&P Assessment and Plan (1) Pneumonia: Code(s): J18.9 - Pneumonia, unspecified organism Status: Acute Assessment and Plan: Continue IV antibiotics. The patient has S factors for aspiration pneumonia. She was started on Levaquin and then switched to Zosyn. She is currently on vancomycin as well. Blood cultures are unrevealing at the time of this dictation. (2) Acute respiratory failure with hypoxia: Code(s): J96.01 - Acute respiratory failure with hypoxia Status: Acute Assessment and Plan: Patient has a history of chronic respiratory failure. She is hypoxic on presentation, requiring noninvasive ventilation with BiPAP. Continue BiPAP at night and with naps. Monitor pulse oximetry overnight. Currently on oxygen at 7 L. (3) Chronic obstructive pulmonary disease: Code(s): J44.9 - Chronic obstructive pulmonary disease, unspecified Status: Acute Assessment and Plan: Continue steroid and aggressive nebulization. (4) Person under investigation for COVID-19: Code(s): Z20.822 - Contact with and (suspected) exposure to COVID-19 Status: Acute Assessment and Plan: COVID rapid antigen was negative. (5) Seizures: Code(s): R56.9 - Unspecified convulsions Status: Acute Assessment and Plan: Start seizure precautions. Resume home meds. (6) Essential hypertension: Code(s): I10 - Essential (primary) hypertension Status: Acute Assessment and Plan: Hypertension moderately controlled with BP 148/89. Continue home meds. 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 (8) Type 2 diabetes mellitus: Code(s): E11.9 - Type 2 diabetes mellitus without complications Status: Acute Assessment and Plan: Monitor Accu-Chek every 6 hours. Start insulin sliding scale coverage. (9) Left adrenal mass: Code(s): E27.8 - Other specified disorders of adrenal gland Status: Acute Assessment and Plan: Patient is a DNR DNI. Further investigation seems futile at this point. Subjective Date/time seen: 03/28/21 09:48 S: Patient was sitting examined at the bedside. She is breathing comfortably on oxygen via nasal cannula. She is complaining wound of dental pain. Review of Systems Review of Systems: All systems reviewed & are unremarkable except as noted in HPI and below Constitutional: Constitutional: Reports as per HPI and Reports no additional constitutional complaints Eyes: Eyes: Reports as per HPI, Reports no additional eye complaints and Denies loss of vision ENT: Reports system reviewed and no additional complaints, except as documented, Reports as per HPI and Denies epistaxis Cardiovascular: Cardiovascular: Reports as per HPI, Reports no additional cardiovascular complaints, Reports dyspnea and Reports dyspnea on exertion Respiratory: Respiratory: Reports as per HPI and Reports no additional respiratory complaints Gastrointestinal: Gastrointestinal: Reports as per HPI and Reports no additional gastrointestinal complaints Genitourinary: Genitourinary: Reports no additional female genitourinary complaints and Reports as per HPI Musculoskeletal: Musculoskeletal: Reports no additional musculoskeletal complaints and Reports as per HPI Integumentary/Breasts: Skin/Breast: Reports system reviewed and no additional complaints, except as docu and Reports as per HPI Neurologic: Reports system reviewed and no additional complaints, except as documented and Reports as per HPI Psychiatric: Psychiatric: Reports no additional psychiatric complaints and Reports as per HPI Endocrine: Endocrine: Reports no additional endocrine complaints and Reports as per HPI Hemat
[2021-03-28] MEDS: HYDROcodone/acetaminophen (*CRX) 5-325 MG TABLET 1 TAB PO (15:56)
[2021-03-28] MEDS: ALPRAZolam (*CRX) 0.25 MG TABLET PO (15:57)
[2021-03-28] MEDS: NAPROXEN 500 MG TABLET PO (15:58)
[2021-03-28] MEDS: GABAPENTIN 300 MG CAPSULE 600 MG PO ×2 (16:18→23:08)
[2021-03-28] MEDS: busPIRone HCL 10 MG TABLET 30 MG PO (16:18)
[2021-03-28 17:28] LABS: Glucose Point of Care 118 mg/dl (65-105)
[2021-03-28 19:34] LABS: Glucose Point of Care 157 mg/dl (65-105)
[2021-03-28] MEDS: FLUTICASONE/SALMETEROL 115-21 MCG INHALER 1 PUFF 2 PUFF INHALATION (19:36)
[2021-03-28] MEDS: levETIRAcetam 250 MG TABLET 750 MG PO (20:29)
[2021-03-28] MEDS: DOXYCYCLINE HYCLATE 100 MG TABLET PO (20:29)
[2021-03-28] MEDS: DONEPEZIL HCL 10 MG TABLET PO (20:29)
[2021-03-28] MEDS: QUEtiapine FUMARATE 25 MG TABLET 50 MG PO (20:30)
[2021-03-28] MEDS: QUEtiapine FUMARATE 100 MG TABLET PO (20:30)
[2021-03-29] VITALS (13 sets, daily range): BP systolic 109–127; BP diastolic 47–58; PULSE 75–98; RESP 14–22; TEMP 36.1–36.5; O2SAT 90–100
[2021-03-29] MEDS: ALBUTEROL SULFATE NEB 2.5 MG/0.5 ML INH 5 MG INHALATION ×3 (02:10→20:42)
[2021-03-29] MEDS: IPRATROPIUM BR 0.02% INH SOLN 0.5 MG/2.5 ML VIAL INHALATION ×3 (02:10→20:42)
[2021-03-29 05:22] LABS: Estimated CRCL calculation 44 ml/min; Estimated Glomerular Filt Rate 49
[2021-03-29] MEDS: GABAPENTIN 300 MG CAPSULE 600 MG PO ×3 (06:00→20:23)
[2021-03-29] MEDS: PIPERACILLIN/TAZOBACTAM SOD 4.5 GM in SODIUM CHLORIDE 0.9% IV 100 ML 200 ML IVPB ×3 (06:00→17:03)
[2021-03-29 08:21] LABS: Glucose Point of Care 96 mg/dl (65-105)
[2021-03-29] MEDS: FLUTICASONE PROPIONATE 0.05% NA SPR 16 GM BTL (*BKC) 1 SPRAY NASAL (09:07)
[2021-03-29] MEDS: DULoxetine HCL 60 MG CAPSULE.DR PO (09:09)
[2021-03-29] MEDS: MIRABEGRON 50 MG ER TABLET PO (09:09)
[2021-03-29] MEDS: ATORVASTATIN 40 MG TABLET PO (09:09)
[2021-03-29] MEDS: DOCUSATE SODIUM 100 MG CAPSULE PO (09:09)
[2021-03-29] MEDS: DOXYCYCLINE HYCLATE 100 MG TABLET PO ×2 (09:09→20:22)
[2021-03-29] MEDS: CHOLECALCIFEROL 1,000 UNITS TABLET 4000 UNITS PO (09:09)
[2021-03-29] MEDS: PANTOPRAZOLE 40 MG TABLET PO (09:09)
[2021-03-29] MEDS: NAPROXEN 500 MG TABLET PO ×2 (09:10→16:20)
[2021-03-29] MEDS: ALPRAZolam (*CRX) 0.25 MG TABLET PO ×2 (09:10→16:19)
[2021-03-29] MEDS: QUEtiapine FUMARATE 100 MG TABLET PO ×2 (09:10→20:24)
[2021-03-29] MEDS: busPIRone HCL 10 MG TABLET 30 MG PO ×2 (09:11→16:19)
[2021-03-29] MEDS: THERAPEUTIC MULTIVITAMINS/MINERALS TAB (*BKC) 1 TABLET PO (09:11)
[2021-03-29] MEDS: HYDROcodone/acetaminophen (*CRX) 5-325 MG TABLET 1 TAB PO ×3 (09:11→16:19)
[2021-03-29] MEDS: polyethylene glycoL 3350 17 GM POWD.PACK BY MOUTH (09:12)
[2021-03-29] MEDS: levETIRAcetam 250 MG TABLET 750 MG PO ×2 (09:12→20:22)
[2021-03-29] MEDS: FLUTICASONE/SALMETEROL 115-21 MCG INHALER 1 PUFF 2 PUFF INHALATION ×2 (09:42→20:42)
[2021-03-29] MEDS: predniSONE 20 MG TABLET 40 MG PO (11:54)
[2021-03-29 12:33] LABS: Glucose Point of Care 138 mg/dl (65-105)
[2021-03-29 12:53] LABS: Glucose Point of Care 157 mg/dl (65-105)
[2021-03-29 16:38] LABS: Glucose Point of Care 137 mg/dl (65-105)
--- NOTE | 2021-03-29 16:46 | PM.IMPN ---
Progress Note: A&P Assessment and Plan (1) Pneumonia: Code(s): J18.9 - Pneumonia, unspecified organism Status: Acute Assessment and Plan: Continue vancomycin and Zosyn. Patient is improving symptomatically. Blood cultures are unrevealing at the time of this dictation. (2) Acute respiratory failure with hypoxia: Code(s): J96.01 - Acute respiratory failure with hypoxia Status: Acute Assessment and Plan: Patient has a history of chronic respiratory failure. She is hypoxic on presentation, requiring noninvasive ventilation with BiPAP. Continue BiPAP at night and with naps. Monitor pulse oximetry overnight. Currently on oxygen at 5 L, she is getting close to her baseline. (3) Chronic obstructive pulmonary disease: Code(s): J44.9 - Chronic obstructive pulmonary disease, unspecified Status: Acute Assessment and Plan: Continue steroid and aggressive nebulization. (4) Person under investigation for COVID-19: Code(s): Z20.822 - Contact with and (suspected) exposure to COVID-19 Status: Acute Assessment and Plan: COVID rapid antigen was negative. (5) Seizures: Code(s): R56.9 - Unspecified convulsions Status: Acute Assessment and Plan: Continue anti seizure home meds. (6) Essential hypertension: Code(s): I10 - Essential (primary) hypertension Status: Acute Assessment and Plan: Hypertension controlled with BP 127/49-1 Continue home meds. 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 (8) Type 2 diabetes mellitus: Code(s): E11.9 - Type 2 diabetes mellitus without complications Status: Acute Assessment and Plan: Monitor Accu-Chek every 6 hours. Start insulin sliding scale coverage. Accu-Cheks reviewed in the 96-157 range. (9) Left adrenal mass: Code(s): E27.8 - Other specified disorders of adrenal gland Status: Acute Assessment and Plan: Patient is a DNR DNI. Further investigation seems futile at this point. Subjective Date/time seen: 03/29/21 16:46 S: Patient was seen examined at the bedside. She is feeling a lot better. She complains about vision problems. She lost her eyeglasses Review of Systems Review of Systems: All systems reviewed & are unremarkable except as noted in HPI and below ROS unobtainable: Yes unobtainable due to medical condition Constitutional: Constitutional: Reports as per HPI and Reports no additional constitutional complaints Eyes: Eyes: Reports as per HPI, Reports no additional eye complaints and Denies loss of vision ENT: Reports system reviewed and no additional complaints, except as documented, Reports as per HPI and Denies epistaxis Cardiovascular: Cardiovascular: Reports as per HPI, Reports no additional cardiovascular complaints, Reports dyspnea and Reports dyspnea on exertion Respiratory: Respiratory: Reports as per HPI, Reports no additional respiratory complaints, Reports dyspnea and Reports dyspnea on exertion Gastrointestinal: Gastrointestinal: Reports as per HPI and Reports no additional gastrointestinal complaints Genitourinary: Genitourinary: Reports no additional female genitourinary complaints and Reports as per HPI Musculoskeletal: Musculoskeletal: Reports no additional musculoskeletal complaints and Reports as per HPI Integumentary/Breasts: Skin/Breast: Reports system reviewed and no additional complaints, except as docu and Reports as per HPI Neurologic: Reports system reviewed and no additional complaints, except as documented, Reports as per HPI and Denies loss of vision Psychiatric: Psychiatric: Reports no additional psychiatric complaints and Reports as per HPI Endocrine: Endocr
--- NOTE | 2021-03-29 18:16 | PCRCNOTE ---
Past window of treatment time
[2021-03-29 18:24] LABS: Vancomycin Trough 13.8 ug/mL (10.0-20.0)
[2021-03-29] MEDS: DONEPEZIL HCL 10 MG TABLET PO (20:21)
[2021-03-29] MEDS: QUEtiapine FUMARATE 25 MG TABLET 50 MG PO (20:23)
[2021-03-29] MEDS: MORPHINE SULFATE (*CRX) 2 MG/ML INJ 1 MG IV PUSH (20:33)
[2021-03-30] VITALS (11 sets, daily range): BP systolic 142; BP diastolic 69; PULSE 79–88; RESP 20; TEMP 36.3; O2SAT 95–100
[2021-03-30] MEDS: PIPERACILLIN/TAZOBACTAM SOD 4.5 GM in SODIUM CHLORIDE 0.9% IV 100 ML 200 ML IVPB ×4 (00:31→16:59)
[2021-03-30] MEDS: ALBUTEROL SULFATE NEB 2.5 MG/0.5 ML INH 5 MG INHALATION ×4 (02:55→19:24)
[2021-03-30] MEDS: IPRATROPIUM BR 0.02% INH SOLN 0.5 MG/2.5 ML VIAL INHALATION ×4 (02:55→19:25)
[2021-03-30] MEDS: GABAPENTIN 300 MG CAPSULE 600 MG PO ×3 (06:34→21:12)
[2021-03-30 08:03] LABS: Lactate Dehydrogenase 325 U/L (313-618)
[2021-03-30] MEDS: NICOTINE (*PBKC) 14 MG PATCH 1 PATCH TRANSDERM (08:47)
[2021-03-30] MEDS: levETIRAcetam 250 MG TABLET 750 MG PO ×2 (08:48→21:11)
[2021-03-30] MEDS: PANTOPRAZOLE 40 MG TABLET PO (08:48)
[2021-03-30] MEDS: LIDOCAINE 5% PATCH 1 PATCH TRANSDERM (08:48)
[2021-03-30] MEDS: busPIRone HCL 10 MG TABLET 30 MG PO ×2 (08:48→16:59)
[2021-03-30] MEDS: CHOLECALCIFEROL 1,000 UNITS TABLET 4000 UNITS PO (08:48)
[2021-03-30] MEDS: HYDROcodone/acetaminophen (*CRX) 5-325 MG TABLET 1 TAB PO ×3 (08:49→16:59)
[2021-03-30] MEDS: predniSONE 20 MG TABLET 40 MG PO (08:49)
[2021-03-30] MEDS: polyethylene glycoL 3350 17 GM POWD.PACK BY MOUTH (08:49)
[2021-03-30] MEDS: ATORVASTATIN 40 MG TABLET PO (08:49)
[2021-03-30] MEDS: ALPRAZolam (*CRX) 0.25 MG TABLET PO ×2 (08:49→16:59)
[2021-03-30] MEDS: DULoxetine HCL 60 MG CAPSULE.DR PO (08:49)
[2021-03-30] MEDS: DOCUSATE SODIUM 100 MG CAPSULE PO (08:49)
[2021-03-30] MEDS: MIRABEGRON 50 MG ER TABLET PO (08:50)
[2021-03-30] MEDS: FLUTICASONE PROPIONATE 0.05% NA SPR 16 GM BTL (*BKC) 1 SPRAY NASAL (08:50)
[2021-03-30] MEDS: QUEtiapine FUMARATE 100 MG TABLET PO ×2 (08:50→21:11)
[2021-03-30] MEDS: DOXYCYCLINE HYCLATE 100 MG TABLET PO ×2 (08:50→21:11)
[2021-03-30] MEDS: FLUTICASONE/SALMETEROL 115-21 MCG INHALER 1 PUFF 2 PUFF INHALATION ×2 (09:32→19:24)
[2021-03-30 09:43] LABS: Glucose Point of Care 344 mg/dl (65-105)
--- NOTE | 2021-03-30 09:45 | PM.IMPN ---
Progress Note: A&P Assessment and Plan (1) Pneumonia: Code(s): J18.9 - Pneumonia, unspecified organism Status: Acute Assessment and Plan: Acute healthcare associated pneumonia. Continue vancomycin and Zosyn. Patient is improving clinically. Blood cultures are unrevealing at the time of this dictation. (2) Acute respiratory failure with hypoxia: Code(s): J96.01 - Acute respiratory failure with hypoxia Status: Acute Assessment and Plan: Patient has a history of chronic respiratory failure. She is hypoxic on presentation, requiring noninvasive ventilation with BiPAP. Continue BiPAP at night and with naps. Monitor pulse oximetry overnight. Currently on oxygen at 5 L, she is getting close to her baseline. (3) Chronic obstructive pulmonary disease: Code(s): J44.9 - Chronic obstructive pulmonary disease, unspecified Status: Acute Assessment and Plan: Continue steroid and aggressive nebulization. (4) Person under investigation for COVID-19: Code(s): Z20.822 - Contact with and (suspected) exposure to COVID-19 Status: Acute Assessment and Plan: COVID rapid antigen was negative. (5) Seizures: Code(s): R56.9 - Unspecified convulsions Status: Acute Assessment and Plan: Continue anti seizure home meds. (6) Essential hypertension: Code(s): I10 - Essential (primary) hypertension Status: Acute Assessment and Plan: Hypertension controlled with BP 142/69 Continue home meds. 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 (8) Type 2 diabetes mellitus: Code(s): E11.9 - Type 2 diabetes mellitus without complications Status: Acute Assessment and Plan: Monitor Accu-Chek every 6 hours. Continue insulin sliding scale coverage. Accu-Cheks reviewed in the 95-344 range. (9) Left adrenal mass: Code(s): E27.8 - Other specified disorders of adrenal gland Status: Acute Assessment and Plan: Patient is a DNR DNI. Further investigation seems futile at this point. Subjective Date/time seen: 03/30/21 09:32 S: Patient was seen examined at the bedside; she complains of left leg pain. She is doing better and her breathing has improved. Review of Systems Review of Systems: All systems reviewed & are unremarkable except as noted in HPI and below Constitutional: Constitutional: Reports as per HPI and Reports no additional constitutional complaints Eyes: Eyes: Reports as per HPI, Reports no additional eye complaints and Denies loss of vision ENT: Reports system reviewed and no additional complaints, except as documented, Reports as per HPI and Denies epistaxis Cardiovascular: Cardiovascular: Reports as per HPI, Reports no additional cardiovascular complaints, Reports dyspnea and Reports dyspnea on exertion Respiratory: Respiratory: Reports as per HPI, Reports no additional respiratory complaints, Reports dyspnea and Reports dyspnea on exertion Gastrointestinal: Gastrointestinal: Reports as per HPI and Reports no additional gastrointestinal complaints Genitourinary: Genitourinary: Reports no additional female genitourinary complaints and Reports as per HPI Musculoskeletal: Musculoskeletal: Reports no additional musculoskeletal complaints and Reports as per HPI Comments: Left leg pain. No redness, swelling or discoloration. Integumentary/Breasts: Skin/Breast: Reports system reviewed and no additional complaints, except as docu and Reports as per HPI Neurologic: Reports system reviewed and no additional complaints, except as documented, Reports as per HPI and Denies loss of vision Psychiatric: Psychiatric: Reports no additional psychiatric complaints and Reports as pe
[2021-03-30 10:53] LABS: Glucose Point of Care 95 mg/dl (65-105)
[2021-03-30] MEDS: THERAPEUTIC MULTIVITAMINS/MINERALS TAB (*BKC) 1 TABLET PO (12:13)
[2021-03-30 13:54] LABS: Glucose Point of Care 125 mg/dl (65-105)
[2021-03-30 17:12] LABS: Glucose Point of Care 122 mg/dl (65-105)
[2021-03-30 18:39] LABS: Glucose Point of Care 227 mg/dl (65-105)
[2021-03-30] MEDS: QUEtiapine FUMARATE 25 MG TABLET 50 MG PO (21:11)
[2021-03-30] MEDS: DONEPEZIL HCL 10 MG TABLET PO (21:11)
[2021-03-31] VITALS (9 sets, daily range): BP systolic 123–136; BP diastolic 68–76; PULSE 80–93; RESP 20–21; TEMP 35.9–36.9; O2SAT 96–99
[2021-03-31] MEDS: ALBUTEROL SULFATE NEB 2.5 MG/0.5 ML INH 5 MG INHALATION ×4 (00:41→20:23)
[2021-03-31] MEDS: IPRATROPIUM BR 0.02% INH SOLN 0.5 MG/2.5 ML VIAL INHALATION ×4 (00:42→20:23)
[2021-03-31] MEDS: PIPERACILLIN/TAZOBACTAM SOD 4.5 GM in SODIUM CHLORIDE 0.9% IV 100 ML 200 ML IVPB ×5 (01:00→23:19)
[2021-03-31] MEDS: GABAPENTIN 300 MG CAPSULE 600 MG PO ×3 (05:36→21:39)
[2021-03-31 08:28] LABS: Glucose Point of Care 83 mg/dl (65-105)
--- NOTE | 2021-03-31 08:42 | PM.IMPN ---
Progress Note: A&P Assessment and Plan (1) Pneumonia: Code(s): J18.9 - Pneumonia, unspecified organism Status: Acute Assessment and Plan: Acute healthcare associated pneumonia. Continue vancomycin and Zosyn. Patient is improving clinically. Blood cultures are unrevealing at the time of this dictation. (2) Acute respiratory failure with hypoxia: Code(s): J96.01 - Acute respiratory failure with hypoxia Status: Acute Assessment and Plan: Patient has a history of chronic respiratory failure. She is hypoxic on presentation, requiring noninvasive ventilation with BiPAP. Continue BiPAP at night and with naps. Monitor pulse oximetry overnight. Currently on oxygen at 5 L, she is getting close to her baseline. (3) Chronic obstructive pulmonary disease: Code(s): J44.9 - Chronic obstructive pulmonary disease, unspecified Status: Acute Assessment and Plan: Continue steroid and aggressive nebulization. (4) Person under investigation for COVID-19: Code(s): Z20.822 - Contact with and (suspected) exposure to COVID-19 Status: Acute Assessment and Plan: COVID rapid antigen was negative. (5) Seizures: Code(s): R56.9 - Unspecified convulsions Status: Acute Assessment and Plan: Continue anti seizure home meds. (6) Essential hypertension: Code(s): I10 - Essential (primary) hypertension Status: Acute Assessment and Plan: Hypertension controlled with BP 142/69 Continue home meds. 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 (8) Type 2 diabetes mellitus: Code(s): E11.9 - Type 2 diabetes mellitus without complications Status: Acute Assessment and Plan: Monitor Accu-Chek every 6 hours. Continue insulin sliding scale coverage. Accu-Cheks reviewed in the 95-344 range. (9) Left adrenal mass: Code(s): E27.8 - Other specified disorders of adrenal gland Status: Acute Assessment and Plan: Patient is a DNR DNI. Further investigation seems futile at this point. Additional Plan 03/31/2021 Patient blood culture was positive for coagulase-negative on 03/27/2021, will repeat blood cultures today. Will repeat chest x-ray Patient clinically getting better. Will continue current treatment. Possible discharge in the morning. Subjective Date/time seen: 03/31/21 08:42 Patient was seen during the morning rounds today. Mild shortness of breath, no chest pain. No abdominal pain, nausea, no vomiting. Mood stable. Review of Systems Review of Systems: All systems reviewed & are unremarkable except as noted in HPI and below ROS unobtainable: Yes unobtainable due to medical condition Constitutional: Constitutional: Reports as per HPI and Reports no additional constitutional complaints Eyes: Eyes: Reports as per HPI, Reports no additional eye complaints and Denies loss of vision ENT: Reports system reviewed and no additional complaints, except as documented, Reports as per HPI and Denies epistaxis Cardiovascular: Cardiovascular: Reports as per HPI, Reports no additional cardiovascular complaints, Reports dyspnea and Reports dyspnea on exertion Respiratory: Respiratory: Reports as per HPI, Reports no additional respiratory complaints, Reports dyspnea and Reports dyspnea on exertion Gastrointestinal: Gastrointestinal: Reports as per HPI and Reports no additional gastrointestinal complaints Genitourinary: Genitourinary: Reports no additional female genitourinary complaints and Reports as per HPI Musculoskeletal: Musculoskeletal: Reports no additional musculoskeletal complaints and Reports as per HPI Integumentary/Breasts: Skin/Breast: Reports system reviewed and no additio
[2021-03-31 09:18] LABS: CRP 2.3 mg/dL (<1.0); Estimated CRCL calculation 52 ml/min; Estimated Glomerular Filt Rate > 60; Lactate Dehydrogenase 370 U/L (313-618)
[2021-03-31] MEDS: FLUTICASONE/SALMETEROL 115-21 MCG INHALER 1 PUFF 2 PUFF INHALATION ×2 (09:19→20:23)
[2021-03-31] MEDS: LIDOCAINE 5% PATCH 1 PATCH TRANSDERM (09:31)
[2021-03-31] MEDS: DOCUSATE SODIUM 100 MG CAPSULE PO (09:32)
[2021-03-31] MEDS: busPIRone HCL 10 MG TABLET 30 MG PO ×2 (09:32→17:10)
[2021-03-31] MEDS: CHOLECALCIFEROL 1,000 UNITS TABLET 4000 UNITS PO (09:32)
[2021-03-31] MEDS: THERAPEUTIC MULTIVITAMINS/MINERALS TAB (*BKC) 1 TABLET PO (09:32)
[2021-03-31 09:33] LABS: Vancomycin Trough 25.2 ug/mL (10.0-20.0)
[2021-03-31] MEDS: DULoxetine HCL 60 MG CAPSULE.DR PO (09:33)
[2021-03-31] MEDS: PANTOPRAZOLE 40 MG TABLET PO (09:33)
[2021-03-31] MEDS: predniSONE 20 MG TABLET 40 MG PO (09:33)
[2021-03-31] MEDS: MIRABEGRON 50 MG ER TABLET PO (09:33)
[2021-03-31] MEDS: ATORVASTATIN 40 MG TABLET PO (09:33)
[2021-03-31] MEDS: QUEtiapine FUMARATE 100 MG TABLET PO ×2 (09:33→21:41)
[2021-03-31] MEDS: FLUTICASONE PROPIONATE 0.05% NA SPR 16 GM BTL (*BKC) 1 SPRAY NASAL (09:34)
[2021-03-31] MEDS: levETIRAcetam 250 MG TABLET 750 MG PO ×2 (09:34→21:40)
[2021-03-31] MEDS: DOXYCYCLINE HYCLATE 100 MG TABLET PO ×2 (09:34→21:40)
[2021-03-31] MEDS: ALPRAZolam (*CRX) 0.25 MG TABLET PO ×2 (09:40→17:09)
[2021-03-31] MEDS: HYDROcodone/acetaminophen (*CRX) 5-325 MG TABLET 1 TAB PO ×3 (09:40→17:09)
[2021-03-31 10:03] LABS: EDCOVIDSCREEN Negative (Negative)
[2021-03-31 12:00] LABS: Glucose Point of Care 126 mg/dl (65-105)
[2021-03-31 15:55] LABS: Glucose Point of Care 174 mg/dl (65-105)
[2021-03-31 20:47] LABS: Glucose Point of Care 138 mg/dl (65-105)
[2021-03-31] MEDS: DONEPEZIL HCL 10 MG TABLET PO (21:40)
[2021-03-31] MEDS: QUEtiapine FUMARATE 25 MG TABLET 50 MG PO (21:44)
[2021-03-31 23:42] LABS: Glucose Point of Care 140 mg/dl (65-105)
[2021-04-01] VITALS (8 sets, daily range): BP systolic 127; BP diastolic 55; PULSE 75–84; RESP 18–20; TEMP 36.8–36.9; O2SAT 94–98
[2021-04-01] MEDS: ALBUTEROL SULFATE NEB 2.5 MG/0.5 ML INH 5 MG INHALATION ×3 (01:41→13:33)
[2021-04-01] MEDS: IPRATROPIUM BR 0.02% INH SOLN 0.5 MG/2.5 ML VIAL INHALATION ×3 (01:41→13:33)
[2021-04-01] MEDS: PIPERACILLIN/TAZOBACTAM SOD 4.5 GM in SODIUM CHLORIDE 0.9% IV 100 ML 200 ML IVPB ×2 (05:42→12:31)
[2021-04-01] MEDS: GABAPENTIN 300 MG CAPSULE 600 MG PO ×2 (05:43→14:31)
[2021-04-01 07:15] LABS: Alanine Aminotransferase 15 U/L (4-35); Albumin Level 3.4 g/dL (3.5-5.1); Alkaline Phosphatase 65 U/L (38-126); Anion Gap 9 mmol/L (8-16); Aspartate Amino Transferase 29 U/L (14-36); Bilirubin,Total 0.5 mg/dL (0.2-1.3); Blood Urea Nitrogen 22 mg/dL (7-17); CRP 1.7 mg/dL (<1.0); Calcium 8.1 mg/dL (8.4-10.2); Carbon Dioxide 33 mmol/L (22-30); Chloride 98 mmol/L (98-107); Estimated CRCL calculation 52 ml/min; Estimated Glomerular Filt Rate > 60; Glucose 102 mg/dL (65-110); Lactate Dehydrogenase 583 U/L (313-618); Potassium 3.6 mmol/L (3.4-5.0); Sodium 140 mmol/L (137-145)
[2021-04-01 08:18] LABS: Glucose Point of Care 79 mg/dl (65-105)
[2021-04-01] MEDS: FLUTICASONE/SALMETEROL 115-21 MCG INHALER 1 PUFF 2 PUFF INHALATION (08:23)
[2021-04-01 09:02] LABS: Hematocrit 36.3 % (37.0-47.0); Hemoglobin 11.1 g/dL (12.0-15.0); Mean Corpuscular HGB Conc 30.6 g/dl (32-36); Mean Corpuscular Hemoglobin 31.9 pg (26-34); Mean Corpuscular Volume 104.3 fl (80-100); Mean Platelet Volume 9.1 fl (7.4-10.4); Platelet Count Result 240 k/mm3 (150-375); Red Blood Count 3.48 M/mm3 (4.2-5.4); Red Cell Distribution Width 14.2 % (11.5-14.5); White Blood Count 9.3 K/mm3 (4.5-10.0)
[2021-04-01] MEDS: HYDROcodone/acetaminophen (*CRX) 5-325 MG TABLET 1 TAB PO ×2 (09:33→12:31)
[2021-04-01] MEDS: ALPRAZolam (*CRX) 0.25 MG TABLET PO (09:33)
[2021-04-01] MEDS: CHOLECALCIFEROL 1,000 UNITS TABLET 4000 UNITS PO (09:34)
[2021-04-01] MEDS: busPIRone HCL 10 MG TABLET 30 MG PO (09:34)
[2021-04-01] MEDS: QUEtiapine FUMARATE 100 MG TABLET PO (09:35)
[2021-04-01] MEDS: predniSONE 20 MG TABLET 40 MG PO (09:35)
[2021-04-01] MEDS: ATORVASTATIN 40 MG TABLET PO (09:35)
[2021-04-01] MEDS: DOXYCYCLINE HYCLATE 100 MG TABLET PO (09:35)
[2021-04-01] MEDS: DULoxetine HCL 60 MG CAPSULE.DR PO (09:35)
[2021-04-01] MEDS: levETIRAcetam 250 MG TABLET 750 MG PO (09:35)
[2021-04-01] MEDS: THERAPEUTIC MULTIVITAMINS/MINERALS TAB (*BKC) 1 TABLET PO (09:35)
[2021-04-01] MEDS: MIRABEGRON 50 MG ER TABLET PO (09:35)
[2021-04-01] MEDS: LIDOCAINE 5% PATCH 1 PATCH TRANSDERM (09:35)
[2021-04-01] MEDS: DOCUSATE SODIUM 100 MG CAPSULE PO (09:35)
[2021-04-01] MEDS: FLUTICASONE PROPIONATE 0.05% NA SPR 16 GM BTL (*BKC) 1 SPRAY NASAL (09:46)
[2021-04-01] MEDS: PANTOPRAZOLE 40 MG TABLET PO (09:47)
[2021-04-01 12:14] LABS: Glucose Point of Care 150 mg/dl (65-105)
--- NOTE | 2021-04-01 12:49 | PM.DS ---
DS: Admitting Diagnosis Discharge Date 04/01/2020 Admitting Diagnosis Shortness of breath DS: Discharge Diagnosis Discharge Diagnosis (1) Pneumonia: Code(s): J18.9 - Pneumonia, unspecified organism Status: Acute Assessment and Plan: Associated with acute hypoxemic respiratory failure patient was treated with vanc Zosyn and Levaquin blood culture was positive 1/2 most likely contaminant Staph coagulase negative patient will be discharged on Augmentin and doxycycline for 3 more days during my exam today patient was saturating 95% on room air (2) Acute respiratory failure with hypoxia: Code(s): J96.01 - Acute respiratory failure with hypoxia Status: Acute Assessment and Plan: Patient has a history of chronic respiratory failure. She is hypoxic on presentation, requiring noninvasive ventilation with BiPAP. Patient currently saturating 95% on room air wean off oxygen patient patient use CPAP at night Repeat chest x-ray in 4 weeks (3) Chronic obstructive pulmonary disease: Code(s): J44.9 - Chronic obstructive pulmonary disease, unspecified Status: Acute Assessment and Plan: Inhaler treatment steroid. (4) Person under investigation for COVID-19: Code(s): Z20.822 - Contact with and (suspected) exposure to COVID-19 Status: Acute Assessment and Plan: COVID rapid antigen was negative. (5) Seizures: Code(s): R56.9 - Unspecified convulsions Status: Acute Assessment and Plan: Continue anti seizure home meds. (6) Essential hypertension: Code(s): I10 - Essential (primary) hypertension Status: Acute Assessment and Plan: Hypertension controlled with BP 142/69 Continue home meds. 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 (8) Type 2 diabetes mellitus: Code(s): E11.9 - Type 2 diabetes mellitus without complications Status: Acute Assessment and Plan: Continue home medication (9) Left adrenal mass: Code(s): E27.8 - Other specified disorders of adrenal gland Status: Acute Assessment and Plan: Patient is a DNR DNI. Further investigation seems futile at this point. DS: Summary Hospital Course Hospital Course: Patient was admitted to the hospital with shortness of breath was found to have acute on top of chronic hypoxemic respiratory failure secondary to pneumonia was treated with broad-spectrum IV antibiotic culture was negative except 1 culture was positive which most likely contaminant patient during hospitalization required non-rebreather and BiPAP currently patient on saturating well on room air 95% patient is adamant about leaving the hospital today patient will be discharged on oral antibiotics repeat chest x-ray in 4 weeks Time Spent with Patient Time attestation: Total time spent providing and/or coordinating discharge services: DS: Data Data Completed and Pending Labs on day of discharge: Labs from last 24 hours 04/01/21 04/01/21 04/01/21 12:11 08:44 08:13 WBC 9.3 RBC 3.48 L Hgb 11.1 L Hct 36.3 L MCV 104.3 H MCH 31.9 MCHC 30.6 L RDW 14.2 Plt Count 240 MPV 9.1 Sodium Potassium Chloride Carbon Dioxide Anion Gap BUN Creatinine Estim Creat Clear Calc Estimated GFR Glucose POC Capillary Glucose 150 H 79 Calcium Ferritin Total Bilirubin AST ALT Alkaline Phosphatase Lactate Dehydrogenase C-Reactive Protein Total Protein Albumin 04/01/21 04/01/21 03/31/21 06:19 06:19 21:52 WBC RBC Hgb Hct MCV MCH MCHC RDW Plt Count MPV Sodium 140 Potassium 3.6 Chloride 98 Carbon Dioxide 33 H
[2021-04-01] MEDS: FUROSEMIDE INJ 40 MG/4 ML VIAL 60 MG IV PUSH (14:31)
[2021-04-01] MEDS: BUMETANIDE 1 MG TABLET 2 MG PO (14:58)
== END 2021-04-01 18:02 | DRG 193 ==
LOC: ANHED 08:30 → ANH3MEDSUR 11:27 → ANHIMU 04-03 10:04
PROVIDERS: Emergency Medicine; Internal Medicine; Admitting Provider Internal Medicine; Emergency Provider Emergency Medicine; Visit Provider Internal Medicine
DX: J18.9 Pneumonia, unspecified organism (principal); J96.21 Acute and chronic respiratory failure with hypoxia; J44.0 Chronic obstructive pulmonary disease with (acute) lower respiratory infection; I69.354 Hemiplegia and hemiparesis following cerebral infarction affecting left non-dominant side; Z20.822 Contact with and (suspected) exposure to COVID-19; Z66 Do not resuscitate; D64.9 Anemia, unspecified; F41.9 Anxiety disorder, unspecified; K21.9 Gastro-esophageal reflux disease without esophagitis; F32.9 Major depressive disorder, single episode, unspecified; E11.42 Type 2 diabetes mellitus with diabetic polyneuropathy; I10 Essential (primary) hypertension; R56.9 Unspecified convulsions; E27.8 Other specified disorders of adrenal gland; Z87.891 Personal history of nicotine dependence
CPT/HCPCS: 36415; 36600; 71045; 71046; 80053; 80202; 82375; 82565; 82728; 82805; 82948; 83050; 83615; 84484; 85025; 85027; 85610; 85730; 86140; 87040; 87077; 87186; 87426; 93005; 94002; 94003; 94640; 96365; 96375; 99285; A9270; C9803; J0131; J1100; J1940; J1956; J2270; J2543; J3370; J7512; U0003; U0005

== ENCOUNTER 2022-11-04 19:49 | Emergency (ER) | payer MEDICARE, MEDICAID, SELFPAY ==
[2022-11-04] VITALS (23 sets, daily range): BP systolic 71–168; BP diastolic 35–81; PULSE 71–105; RESP 10–32; TEMP 35.9; O2SAT 53–100
--- NOTE | ~2022-11-04 | XR_ITS ---
EXAMINATION: XR chest 1V portable Exam Date/Time: 11/04/2022 19:55 CDT HISTORY: shortness of breath Comparison: 04/01/2021. RESULT: Lines, tubes, and devices: None. Lungs and pleura: Subsegmental left hilar and subsegmental left basilar airspace disease. Left costo phrenic angle blunting. Diffuse reticular opacities. Cardiomediastinal silhouette: Stable. Other: No acute osseous or upper abdominal finding. IMPRESSION: Left hilar and basilar atelectasis/consolidation. Likely small left effusion. Interstitial edema. Reviewed, dictated and finalized at location K. IMPRESSION: Left hilar and basilar atelectasis/consolidation. Likely small left effusion. I nterstitial edema.
--- NOTE | ~2022-11-04 | CT_ITS ---
EXAMINATION: CT brain wo con DATE: 11/04/2022 21:10 INDICATION: Altered mental status . TECHNIQUE: Computed tomography (CT) of the head was performed without intravenous contrast. The mA wa s adjusted according to patient size. Iterative reconstruction technique was employed. The dose-lengt h product was 605.33 mGy-cm. COMPARISON: 09/17/2020. FINDINGS: No acute intracranial hemorrhage or extra-axial fluid collection. No hydrocephalus, mass, or herniation. No acute ischemic infarct. Unremarkable dural venous sinus attenuation. No acute osseous abnormality. The aerated spaces are clear. Moderate atrophy and mild chronic white matter change. Atherosclerotic intracranial calcification. La rge old right MCA territory infarct. IMPRESSION: No acute intracranial process. Reviewed, dictated and finalized at location K.
--- NOTE | 2022-11-04 20:12 | ED.GENADULT ---
HPI - General Adult General Chief complaint: Unspecified Stated complaint: UNRESPONSIVE - DNR History of Present Illness HPI narrative: Patient 72-year-old female who presents the emergency department with chief complaint of shortness of breath. Patient is a resident of a local nursing facility and was found minimally responsive by nursing staff. The patient has an active DNR comfort measures order does not want any intervention beyond basic comfort measures. The patient has had a recent pneumonia the patient was initially found to be hypoxic by EMS and was treated with assisted ventilation with [id number] until he arrived to the emergency department. The patient's DNR order does not include noninvasive positive pressure ventilation and does not include intubation. Related Data Home Medications Medication Instructions Recorded Confirmed atorvastatin 40 mg tablet 40 mg PO DAILY 02/17/21 03/27/21 buspirone 30 mg tablet 30 mg PO BID 02/17/21 03/27/21 donepezil 10 mg tablet 10 mg PO HS 02/17/21 03/27/21 duloxetine 60 mg capsule,delayed 60 mg PO AC 02/17/21 03/27/21 release fluticasone furoate 100 1 inh inhalation DAILY 02/17/21 03/27/21 mcg-vilanterol 25 mcg/dose inhalation powder (Breo Ellipta) gabapentin 600 mg tablet 600 mg PO TID 02/17/21 03/27/21 levetiracetam 750 mg tablet 750 mg PO BID 02/17/21 03/27/21 mirabegron 50 mg tablet,extended 50 mg PO DAILY 02/17/21 03/27/21 release 24 hr (Myrbetriq) omeprazole 40 mg capsule,delayed 40 mg PO DAILY 02/17/21 03/27/21 release quetiapine 100 mg tablet 100 mg PO BID 02/17/21 03/27/21 quetiapine 50 mg tablet 50 mg PO HS 02/17/21 03/27/21 Miralax 1 pkg BYMOUTH DAILY 03/27/21 03/27/21 calcium carbonate 500 mg calcium 500 mg PO TID 03/27/21 03/27/21 (1,250 mg) chewable tablet cholecalciferol (vitamin D3) 100 100 mcg PO DAILY 03/27/21 03/27/21 mcg (4,000 unit) capsule docusate sodium 100 mg capsule 100 mg PO DAILY 03/27/21 03/27/21 fluticasone propionate 50 1 spray intranasal DAILY 03/27/21 03/27/21 mcg/actuation nasal spray,suspension (Flonase Allergy Relief) multivitamin with minerals 1 cap PO DAILY 03/27/21 03/27/21 nicotine 14 mg/24 hr daily 1 patch transdermal DAILY PRN 03/27/21 03/27/21 transdermal patch Smoking Cessation Allergies Allergy/AdvReac Type Severity Reaction Status Date / Time Sulfa (Sulfonamide Allergy Unknown Unknown Verified 03/27/21 19:31 Antibiotics) Review of Systems Review of Systems: ROS unobtainable: Yes unobtainable due to medical condition and unobtainable due to mental status PMFSH Past Medical History Medical History Anemia Anxiety Cerebrovascular accident (12/2016) Resultant left hemiplegia. Chronic obstructive pulmonary disease Chronic pain Cognitive communication deficit Essential hypertension Gastroesophageal reflux disease Insomnia Major depressive disorder Polyneuropathy Seizures Type 2 diabetes mellitus Surgical History Surgical History History of colonoscopy History of esophagogastroduodenoscopy History of open reduction and internal fixation (ORIF) procedure ORIF left hip fracture. History of partial hysterectomy History of tonsillectomy Family History Family History Father Diabetes mellitus PAD (peripheral artery disease) Hx of BKA Mother Cerebrovascular accident Sibling Diabetes mellitus Social History Social History Social History: Surrogate decision maker: KORI Carreon. Code status: Do not resuscitate. Smoking packs per day: 1 Smoking cigarettes per day: 20.0 Years smoked: 50 Smoking pack-years: 50.00 Smoking status: Former smoker Second hand tobacco smoke exposure: No Alcohol intake: unknown Alc
[2022-11-04] MEDS: SODIUM CHLORIDE 0.9% IV 1,000 ML 999 ML IV CONT ×2 (20:29→21:30)
[2022-11-04 20:38] LABS: Hematocrit 41.1 % (37.0-47.0); Hemoglobin 11.7 g/dL (12.0-15.0); Mean Corpuscular HGB Conc 28.5 g/dl (32-36); Mean Corpuscular Volume 115.8 fl (80-100); Mean Platelet Volume 9.6 fl (7.4-10.4); Platelet Count Result 265 k/mm3 (150-375); Red Blood Count 3.55 M/mm3 (4.2-5.4); Red Cell Distribution Width 15.2 % (11.5-14.5); White Blood Count 25.5 K/mm3 (4.5-10.0)
[2022-11-04 20:50] LABS: Lactic Acid Reflex 1.1 mmol/L (0.7-2.0); Prothrombin Time 13.4 Seconds (11.1-14.7)
[2022-11-04 20:51] LABS: Partial Thromboplastin Time 28.2 SECONDS (22.3-36.8)
[2022-11-04 20:53] LABS: Alanine Aminotransferase 29 U/L (6-35); Albumin Level 3.9 g/dL (3.5-5.1); Alkaline Phosphatase 152 U/L (38-126); Aspartate Amino Transferase 36 U/L (14-36); Bilirubin,Total 0.7 mg/dL (0.2-1.3); Blood Urea Nitrogen 24 mg/dL (7-17); Calcium 8.6 mg/dL (8.4-10.2); Carbon Dioxide > 40 mmol/L (22-30); Chloride 93 mmol/L (98-107); Estimated CRCL calculation 37 ml/min; Estimated Glomerular Filt Rate 37; Glucose 214 mg/dL (65-110); Magnesium 2.7 mg/dL (1.6-2.3); Potassium 3.4 mmol/L (3.4-5.0); Sodium 145 mmol/L (137-145)
[2022-11-04 21:01] LABS: NT Pro B Type Natriuretic Pept 1830 pg/mL (19.9-100); Troponin I < 0.012 ng/mL (0.000-0.034)
[2022-11-04 21:10] LABS: Anisocytosis 2+ (NORMAL); Band Neutrophils Percent 10 % (0-6); Lymphocytes Absolute Manual 2.29 K/mm3 (1.1-4.5); Monocytes Absolute Manual 2.55 K/mm3 (0.1-0.90); Monocytes Percent Manual 10 % (3-9); Neutrophils Absolute Manual 20.65 K/mm3 (1.7-7.2); Neutrophils Percent Manual 71 % (46-73); Platelet Estimate Adequate (Adequate); Schistocytes None Seen (NORMAL); Total Cells Counted 100
[2022-11-04 21:11] LABS: Hypochromasia 1+ (NORMAL)
[2022-11-04 21:12] LABS: Appearance Urine Turbid (Clear); Bacteria Urine 1+ /hpf; Bilirubin Urine Negative (Negative); Blood Urine 1+ (Negative); Color Urine Yellow (Yellow); Glucose Urine UA Negative (Negative); Hyaline Casts Urine Present /lpf; Ketones Urine Negative (Negative); Leukocyte Esterase Ur 2+ LEU/UL (Negative); Nitrate Urine Negative (Negative); Non Pathogenic Casts >20; Protein Urine 2+ mg/dL (Negative); Specific Grav Ur 1.018 (1.001-1.035); Squamous Epithelial Cell Urine Many /hpf (Few); WBC Urine >100 /hpf; pH Urine 5.5 (5.0-9.0)
[2022-11-04 21:14] LABS: Influenza A QL RT-PCR Negative (Negative); Influenza B QL RT-PCR Negative (Negative); RSV RNA, RT-PCR Negative (Negative); SARS-CoV-2 RNA PCR Negative (Negative)
[2022-11-04 21:15] LABS: Add Urine Microscopic? YES
--- NOTE | 2022-11-04 21:22 | PC.NURSE ---
PER THE REQUEST OF EDP; DR CARDONA; THIS RN ATTEMPTED AT 2117 ON 11/04/2022, TO CONTACT PT'S POA LINA ROSE AT WITH NO ANSWER AND NO VOICEMAIL WAS LEFT BECAUSE SHE DID NOT IDENTIFY HERSELF IN HER VOICEMAIL RECORDING. THIS RN THEN CALLED PT'S FAMILY MEMBER KIKA ORTEGA AT AT 2118 ON 11/04/2022 WITH NO ANSWER, VOICEMAIL DID IDENTIFY THIS PERSON BY NAME, SO VOICEMAIL WAS LEFT FOR HER TO CALL BACK TO (ED CHARGE NURSE DESK).
[2022-11-04] MEDS: SODIUM CHLORIDE 0.9% IV 1,000 ML 125 ML IV CONT (22:28)
[2022-11-04] MEDS: VANCOMYCIN 1,250 MG/NS 250 ML 1,250 MG/250 ML BAG 166.67 MG IVPB (22:29)
--- NOTE | 2022-11-04 22:37 | PC.NURSE ---
EDP made aware of O2 saturation. unable to get ahold of family. DNR, comfort care measures continued. suctioning pt as needed. pt still on 15L via nonrebreather.
--- NOTE | 2022-11-04 22:54 | PC.NURSE ---
1442 ON 11/04/2022 THIS NURSE CALLED AND GOT A HOLD OF LINA ROSE PT'S POA. THIS PERSON STATED THAT SHE COULD NOT COME UP HERE, BUT WOULD GET A HOLD OF PT'S GRANDSON AND HAVE HIM CALL BACK.
--- NOTE | 2022-11-04 23:09 | PM.IMHP ---
H&P: HPI History of Present Illness Date/Time: 11/04/22 23:09 Chief Complaint: worsening altered mental status Narrative: This is a72 y/o F who is presenting from the local detention with worsening altered mental status. She is a DNR, DNI, no bipap. She was bagged for hypoxia in the ambulance en route. She was found minimally responsive by the detention staff. Her DNR comfort measures state that she does not want any intervention beyond basic comfort measures, per ER. The pt's recent hx includes recent pneumonia, found to be hypoxic, treated with assisted ventilation with bag valve mask until she arrived to the ER. In the ER, the pt was noted to have a WBC to 25.5 with 10 bands. Her CO2 is high to >40, her cl is low, and her bun/cr are elevated to 24/1.40. BNP 1830, trop pending, UA + for UTI. She looks very poor in the ER. Her SP02 is <50% on the nonrebreather at 15L/min. Her RR is < 10. Just now her BP dropped to 90's/50's. She looks to be in the process of passing away soon, possibly tonight. She is unresponsive to voice, light touch, and barely responds to noxious stimulus. Review of Systems Review of Systems: Pt is not responsive and not able to report complaints. FOR[facility]LY [facility] Past Medical History Medical History Anemia Anxiety Cerebrovascular accident (12/2016) Resultant left hemiplegia. Chronic obstructive pulmonary disease Chronic pain Cognitive communication deficit Essential hypertension Gastroesophageal reflux disease Insomnia Major depressive disorder Polyneuropathy Seizures Type 2 diabetes mellitus Surgical History Surgical History History of colonoscopy History of esophagogastroduodenoscopy History of open reduction and internal fixation (ORIF) procedure ORIF left hip fracture. History of partial hysterectomy History of tonsillectomy Family History Family History Father Diabetes mellitus PAD (peripheral artery disease) Hx of BKA Mother Cerebrovascular accident Sibling Diabetes mellitus Social History Social History Social History: Surrogate decision maker: KORI Carreon. Code status: Do not resuscitate. Smoking packs per day: 1 Smoking cigarettes per day: 20.0 Years smoked: 50 Smoking pack-years: 50.00 Smoking status: Former smoker Second hand tobacco smoke exposure: No Alcohol intake: unknown Alcohol use details: History of alcohol abuse, quit 16 years ago. Substance use: unknown Living arrangements: detention Additional living arrangements comments: Resident at [facility]. 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 Spiritual care concerns: No Meds Home Medications and Allergies Home Medications Medication Instructions Recorded Confirmed Type atorvastatin 40 mg tablet 40 mg PO DAILY 02/17/21 03/27/21 History buspirone 30 mg tablet 30 mg PO BID 02/17/21 03/27/21 History donepezil 10 mg tablet 10 mg PO HS 02/17/21 03/27/21 History duloxetine 60 mg capsule,delayed 60 mg PO AC 02/17/21 03/27/21 History release fluticasone furoate 100 1 inh inhalation DAILY 02/17/21 03/27/21 History mcg-vilanterol 25 mcg/dose inhalation powder (Breo Ellipta) gabapentin 600 mg tablet 600 mg PO TID 02/17/21 03/27/21 History levetiracetam 750 mg tablet 750 mg PO BID 02/17/21 03/27/21 History mirabegron 50 mg tablet,extended 50 mg PO DAILY 02/17/21 03/27/21 History release 24 hr (Myrbetriq) omeprazole 40 mg capsule,delayed 40 mg PO DAILY 02/17/21 03/27/21 History release quetiapine 100 mg tablet 100 mg PO BID 02/17/21 03/27/21 History quetiapine 50 mg tabl
--- NOTE | 2022-11-04 23:09 | PC.NURSE ---
pt care and report given to KESHAV Wilde. all questions answered.
[2022-11-04] MEDS: MORPHINE SULFATE (*CRX) 2 MG/ML INJ IV PUSH (23:16)
[2022-11-04] MEDS: LORazepam INJ (*CRX) 2 MG/ML VIAL 1 MG IV PUSH (23:16)
--- NOTE | 2022-11-04 23:30 | PC.NURSE ---
Assumed care of pt and pt oxygen saturation in the 50's on non rebreather. EDP aware. Hospitalist is in the department and agrees that it is probably for the best for the pt to remain in the emergency department.
[2022-11-04 23:57] LABS: Troponin I < 0.012 ng/mL (0.000-0.034)
--- NOTE | 2022-11-05 | PC.NURSE ---
Family at bedside. Dr. Adams spoke with the family in the family services room prior to them coming back. Family aware of pt condition and agrees with continuing comfort measures.
--- NOTE | 2022-11-05 00:42 | PC.NURSE ---
Attempted to call Pt's primary MD x2 to notify of pt's passing. No answer, unable to leave voicemail.
== END 2022-11-05 04:46 | disposition expired ==
LOC: ANHED 21:41 → ANH2MED 23:30
PROVIDERS: Emergency Provider Emergency Medicine; PCP Hospitalist
DX: J96.01 Acute respiratory failure with hypoxia (principal); J18.9 Pneumonia, unspecified organism; N39.0 Urinary tract infection, site not specified; R41.82 Altered mental status, unspecified; Z20.822 Contact with and (suspected) exposure to COVID-19; J44.9 Chronic obstructive pulmonary disease, unspecified; I10 Essential (primary) hypertension; E11.42 Type 2 diabetes mellitus with diabetic polyneuropathy; I69.954 Hemiplegia and hemiparesis following unspecified cerebrovascular disease affecting left non-dominant side; D64.9 Anemia, unspecified; K21.9 Gastro-esophageal reflux disease without esophagitis; F41.9 Anxiety disorder, unspecified; F32.9 Major depressive disorder, single episode, unspecified; Z66 Do not resuscitate; Z90.711 Acquired absence of uterus with remaining cervical stump; Z87.891 Personal history of nicotine dependence
CPT/HCPCS: 36415; 70450; 71045; 80053; 81001; 83605; 83735; 83880; 84484; 85025; 85610; 85730; 87040; 87077; 87081; 87086; 87186; 87637; 96361; 96365; 96366; 96375; 99285; J2060; J2270; J3370; J7030